=== PATIENT | female | born 1945 | race Caucasian/White ===

== ENCOUNTER 2017-12-10 08:16 | Inpatient (IN) | payer OTHER ==
[2017-12-03 13:30] LABS: BASO % 0.4 %; BASO ABS # 0.03 K/uL (0-0.2); COMPLETE YES; EOS % 1.5 %; HEMATOCRIT 44.5 % (37-47); HEMOGLOBIN 14.9 g/dL (12.0-16.0); IG# 0.01 K/uL (0.00-0.02); IG% 0.1 %; LYMPH % 25.2 %; LYMPH ABS # 1.73 K/uL (1.2-3.4); MEAN CELL VOLUME 96.1 fL (80-100); MEAN CORPUSCULAR HEMOGLOBIN 32.2 pg (25-34); MEAN CORPUSCULAR HGB CONC 33.5 g/dl (32-36); MEAN PLATELET VOLUME 9.9 fL (7.4-10.4); MONO % 8.5 %; MONO ABS # 0.58 K/uL (0.11-0.59); NEUT % 64.3 %; NEUT ABS # 4.41 K/uL (1.4-6.5); PLATELET COUNT 322 K/uL (130-400); RED BLOOD COUNT 4.63 M/uL (4.2-5.4); RED CELL DISTRIBUTION WIDTH CV 13.2 % (11.5-14.5); RED CELL DISTRIBUTION WIDTH SD 45.9 fL (36.4-46.3); WHITE BLOOD COUNT 6.86 K/uL (4.8-10.8)
[2017-12-03 13:36] LABS: URINE APPEARANCE CLEAR (CLEAR); URINE BACTERIA AUTO NEG (NEG); URINE BILIRUBIN NEG (NEG); URINE BLOOD HGB NEG (NEG); URINE COLOR DK YELLOW; URINE EPITHELIAL CELL AUTO >30 /lpf (0-5); URINE GLUCOSE(DIPSTICK) NEG (NEG); URINE KETONES NEG (NEG); URINE LEUKOCYTE ESTERASE TRACE (NEG); URINE NITRITE NEG (NEG); URINE PROTEIN(DIPSTICK) NEG (NEG); URINE RBC AUTO 0-4 /hpf (0-4); URINE SPECIFIC GRAVITY 1.017 (1.000-1.030); UROBILINOGEN NEG (NEG)
[2017-12-03 13:43] LABS: MANUAL MICROSCOPIC REQUIRED? NO; REVIEW REQ? NO
[2017-12-03 13:50] LABS: BLOOD UREA NITROGEN 13 mg/dl (7-18); BUN/CREATININE RATIO 17.6 (10-20); CALCIUM 9.8 mg/dl (8.5-10.1); CARBON DIOXIDE 25 mmol/L (21-32); CHLORIDE 105 mmol/L (98-107); CREATININE 0.71 mg/dl (0.60-1.20); EstGFR CKD-E AfrAm 98.6; EstGFR CKD-E NON AfrAm 85.1; POTASSIUM 3.8 mmol/L (3.5-5.1); SODIUM 140 mmol/L (136-145)
[2017-12-03 13:50] LABS: GLUCOSE 100 mg/dl (70-99)
[~2017-12-10 08:16] MED LIST: ATROPINE SULFATE 0.1 MG/ML 5ML SYR IV; EpHEDrine SULFATE INJ 50 MG/ML AMP IV; HYDROmorphone INJ 0.5 MG/0.5 ML SYR IV; ONDANSETRON INJ 2 MG/ML 2 ML VIAL IV; PHENYLEPHRINE 100MCG/ML 5ML SYR IV
[2017-12-10] MEDS: LACTATED RINGER'S 1000ML 1,000 ML IV ×3 (08:52→18:57)
[2017-12-10] MEDS ORDERED: MIDAZOLAM HCL 1 MG/ML 2ML VIAL (08:55)
[2017-12-10] MEDS ORDERED: FENTANYL CITRATE INJ 50 MCG/1 ML 2 ML VIAL ×2 (08:55→10:02)
[2017-12-10] MEDS ORDERED: BUPIVACAINE/EPINEPHRINE 0.5% MPF 1:200,000 30 ML VIAL (09:27)
[2017-12-10] MEDS: CEFAZOLIN 1000MG IV PUSH 5 ML IV (09:44)
[2017-12-10] MEDS ORDERED: HYDROmorphone INJ 2 MG/ML SYR/VIAL ×2 (10:03→11:14)
[2017-12-10] MEDS: BACITRACIN 50000 UNIT VIAL (10:34)
[2017-12-10] MEDS: BUPIVACAINE/EPINEPHRINE 0.5% MPF 1:200,000 10 ML VIAL INJ (10:35)
[2017-12-10] MEDS ORDERED: PHENYLEPHRINE 100MCG/ML 5ML SYR ×2 (10:42→11:30)
[2017-12-10] MEDS ORDERED: EpHEDrine SULFATE 50MG/5ML SYR ×2 (10:42→11:30)
[2017-12-10] MEDS ORDERED: DO NOT ADMINISTER PNEUMOCOCCAL VACCINE (11:15)
[2017-12-10] MEDS ORDERED: NALOXONE HCL 0.4 MG/1 ML VIAL/CARP IV (11:15)
[2017-12-10] MEDS ORDERED: ACETAMINOPHEN 500 MG TAB PO (11:15)
[2017-12-10] MEDS ORDERED: ALUMINUM/MAGNESIUM SUSP 30 ML UDC PO (11:15)
[2017-12-10] MEDS ORDERED: hydrOXYzine HCL 25 MG TAB PO (11:15)
[2017-12-10] MEDS ORDERED: LORAZEPAM 0.5 MG TAB PO (11:15)
[2017-12-10] MEDS ORDERED: LORAZEPAM INJ 0.5 MG in SYRINGE 0.75 ML IV (11:15)
[2017-12-10] MEDS ORDERED: SOD PHOSPHATE/SOD BIPHOSPHATE ENEMA 132 ML BTL PR (11:15)
[2017-12-10] MEDS ORDERED: FAMOTIDINE 20 MG TAB PO (11:15)
[2017-12-10] MEDS ORDERED: DO NOT ADMINISTER FLU VACCINE (11:15)
[2017-12-10] MEDS ORDERED: BISACODYL 10 MG SUPP PR (11:15)
[2017-12-10] MEDS ORDERED: ACETAMINOPHEN IV 100 ML IV (11:15)
[2017-12-10] MEDS ORDERED: PROMETHAZINE HCL INJ 12.5 MG in SODIUM CHLORIDE 0.9% 50ML 50 ML IV (11:15)
[2017-12-10] MEDS: FLOSEAL HEMOSTATIC MATRIX 10ML TOP (11:18)
[2017-12-10] MEDS ORDERED: DEXAMETHASONE SOD INJ 4 MG/ML VIAL (11:30)
[2017-12-10] MEDS ORDERED: GLYCOPYRROLATE INJ 0.2 MG/ML VIAL (11:30)
[2017-12-10] MEDS ORDERED: PROPOFOL IV EMULSION 10 MG/ML 20 ML VIAL IV (11:30)
[2017-12-10] MEDS ORDERED: NEOSTIGMINE METHYLSULFATE 1 MG/ML 10ML VIAL (11:30)
[2017-12-10] MEDS ORDERED: ONDANSETRON INJ 2 MG/ML 2 ML VIAL (11:30)
[2017-12-10] MEDS ORDERED: LIDOCAINE HCL 2% 2 ML VIAL (20MG/ML) (11:30)
[2017-12-10] MEDS ORDERED: ROCURONIUM BROMIDE 10 MG/ML 5 ML VIAL IV (11:30)
[2017-12-10] MEDS: HYDROmorphone HCL 0.5MG/ML 50 ML CASSETTE (11:33)
[2017-12-10] MEDS: HYDROmorphone HCL 0.5MG/ML 50 ML CASSETTE IV ×2 (12:15→22:55)
[2017-12-10] MEDS ORDERED: ESMOLOL HCL 10 MG/ML 10 ML VIAL (14:06)
[2017-12-10] MEDS: GABAPENTIN 300 MG CAP PO ×2 (14:09→20:31)
[2017-12-10] MEDS: SODIUM CHLORIDE 0.9% 1000ML 1,000 ML IV (14:09)
[2017-12-10 17:49] LABS: ACT87 HEP C IGG SCREEN** NEG (NEG)
[2017-12-10] MEDS: SIMVASTATIN 20 MG TAB PO (20:30)
[2017-12-10] MEDS: CEFAZOLIN IV 1,000 MG in SYRINGE 0 ML IV (20:30)
[2017-12-10] MEDS: DOCUSATE SODIUM/SENNA 50/8.6MG TAB PO (20:31)
[2017-12-11] MEDS: LACTATED RINGER'S 1000ML 1,000 ML IV (01:34)
[2017-12-11] MEDS: CEFAZOLIN IV 1,000 MG in SYRINGE 0 ML IV (03:51)
[2017-12-11] MEDS ORDERED: NURSING VERBAL MED ORDER (05:30)
[2017-12-11] MEDS: DC PCA (05:51)
[2017-12-11] MEDS ORDERED: NALOXONE HCL 0.4 MG/1 ML VIAL/CARP IV (06:00)
[2017-12-11 06:43] LABS: BASO % 0.2 %; BASO ABS # 0.02 K/uL (0-0.2); COMPLETE YES; EOS % 0.1 %; EOS ABS # 0.01 K/uL (0-0.5); HEMATOCRIT 33.1 % (37-47); HEMOGLOBIN 10.7 g/dL (12.0-16.0); IG# 0.03 K/uL (0.00-0.02); IG% 0.3 %; LYMPH % 15.7 %; LYMPH ABS # 1.66 K/uL (1.2-3.4); MEAN CELL VOLUME 95.4 fL (80-100); MEAN CORPUSCULAR HEMOGLOBIN 30.8 pg (25-34); MEAN CORPUSCULAR HGB CONC 32.3 g/dl (32-36); MEAN PLATELET VOLUME 9.7 fL (7.4-10.4); MONO % 8.9 %; MONO ABS # 0.94 K/uL (0.11-0.59); NEUT % 74.8 %; PLATELET COUNT 239 K/uL (130-400); RED BLOOD COUNT 3.47 M/uL (4.2-5.4); RED CELL DISTRIBUTION WIDTH CV 12.9 % (11.5-14.5); WHITE BLOOD COUNT 10.56 K/uL (4.8-10.8)
[2017-12-11 07:10] LABS: GLUCOSE 96 mg/dl (70-99)
[2017-12-11 07:10] LABS: BLOOD UREA NITROGEN 11 mg/dl (7-18); BUN/CREATININE RATIO 16.8 (10-20); CALCIUM 8.3 mg/dl (8.5-10.1); CARBON DIOXIDE 25 mmol/L (21-32); CHLORIDE 108 mmol/L (98-107); CREATININE 0.64 mg/dl (0.60-1.20); EstGFR CKD-E AfrAm 103.3; EstGFR CKD-E NON AfrAm 89.2; POTASSIUM 3.8 mmol/L (3.5-5.1); SODIUM 143 mmol/L (136-145)
[2017-12-11] MEDS: ASPIRIN 81 MG ECTAB PO (08:42)
[2017-12-11] MEDS: GABAPENTIN 300 MG CAP PO ×3 (08:42→20:52)
[2017-12-11] MEDS: OXYCODONE HCL IR 5 MG TAB (IMMEDIATE RELEASE) PO ×3 (08:45→20:51)
[2017-12-11 11:26] LABS: ACT87 HEP C IGG SCREEN** NEG (NEG)
[2017-12-11] MEDS: HYDROmorphone INJ 0.5 MG/0.5 ML SYR IV ×2 (11:36→21:27)
[2017-12-11] MEDS: SIMVASTATIN 20 MG TAB PO (20:52)
[2017-12-11] MEDS: DOCUSATE SODIUM/SENNA 50/8.6MG TAB PO (20:52)
[2017-12-12] MEDS: OXYCODONE HCL IR 5 MG TAB (IMMEDIATE RELEASE) PO ×4 (03:17→21:58)
[2017-12-12] MEDS: POLYETHYLENE (MIRALAX) 17 GM PACK PO ×4 (05:46→23:45)
[2017-12-12] MEDS: GABAPENTIN 300 MG CAP PO ×3 (09:00→20:41)
[2017-12-12] MEDS: ASPIRIN 81 MG ECTAB PO (09:00)
[2017-12-12] MEDS: SIMVASTATIN 20 MG TAB PO (20:41)
[2017-12-12] MEDS: DOCUSATE SODIUM/SENNA 50/8.6MG TAB PO (20:41)
[2017-12-13] MEDS: OXYCODONE HCL IR 5 MG TAB (IMMEDIATE RELEASE) PO ×3 (03:40→12:40)
[2017-12-13] MEDS: POLYETHYLENE (MIRALAX) 17 GM PACK PO ×2 (05:30→12:00)
[2017-12-13] MEDS: ASPIRIN 81 MG ECTAB PO (08:39)
[2017-12-13] MEDS: GABAPENTIN 300 MG CAP PO (08:39)
[2017-12-13] MEDS: MAGNESIUM HYDROXIDE SUSP 30 ML UDC PO (08:42)
[2017-12-13] MEDS: ONDANSETRON INJ 2 MG/ML 2 ML VIAL IV (09:55)
[2017-12-13] MEDS: BISACODYL 10 MG SUPP PR (10:00)
[2017-12-13] MEDS: METOCLOPRAMIDE HCL INJ 5 MG/ML 2 ML VIAL IV (12:40)
== END 2017-12-13 14:15 | disposition home health service (06) | DRG 455 ==
LOC: C.ACU 08:16 → C.3E 11:16
PROVIDERS: Orthopaedic Surgery Orthopaedic Surgery of the Spine
PROC: 0SG00AJ Fusion of Lumbar Vertebral Joint with Interbody Fusion Device, Posterior Approach, Anterior Column, Open Approach (ICD-10-PCS; principal; 2017-12-10 09:40)
PROC: 0SG0071 Fusion of Lumbar Vertebral Joint with Autologous Tissue Substitute, Posterior Approach, Posterior Column, Open Approach (ICD-10-PCS; 2017-12-10 09:40)
PROC: 0ST20ZZ Resection of Lumbar Vertebral Disc, Open Approach (ICD-10-PCS; 2017-12-10 09:40)
PROC: 01NB0ZZ Release Lumbar Nerve, Open Approach (ICD-10-PCS; 2017-12-10 09:40)
DX: M48.061 Spinal stenosis, lumbar region without neurogenic claudication (principal); M43.16 Spondylolisthesis, lumbar region; E78.5 Hyperlipidemia, unspecified; M19.90 Unspecified osteoarthritis, unspecified site; Z87.891 Personal history of nicotine dependence; Z79.82 Long term (current) use of aspirin; Z79.891 Long term (current) use of opiate analgesic; Z79.899 Other long term (current) drug therapy

== ENCOUNTER → 2018-07-04 | Outpatient (CLI) | payer OTHER ==
[~2018-07-04] MED LIST changes: +ASCO1CAP3 PO; +ASPCH81X PO; -ATROPINE SULFATE 0.1 MG/ML 5ML SYR IV; +B-COTAB18 PO; +CALC600T9 PO; -EpHEDrine SULFATE INJ 50 MG/ML AMP IV; +GABA-113 PO; +HYDR-3419 PO; -HYDROmorphone INJ 0.5 MG/0.5 ML SYR IV; +METH500T3 PO; +MULTTAB58 PO; -ONDANSETRON INJ 2 MG/ML 2 ML VIAL IV; -PHENYLEPHRINE 100MCG/ML 5ML SYR IV; +RXC5 PO; +SIMV20TA2 PO; +vitamin d PO
[2018-07-04 12:17] LABS: BASO % 0.4 %; BASO ABS # 0.02 K/uL (0-0.2); EOS % 1.6 %; EOS ABS # 0.08 K/uL (0-0.5); HEMATOCRIT 41.3 % (37-47); HEMOGLOBIN 13.7 g/dL (12.0-16.0); IG# 0.01 K/uL (0.00-0.02); LYMPH % 31.6 %; LYMPH ABS # 1.55 K/uL (1.2-3.4); MEAN CELL VOLUME 94.1 fL (80-100); MEAN CORPUSCULAR HEMOGLOBIN 31.2 pg (25-34); MEAN CORPUSCULAR HGB CONC 33.2 g/dl (32-36); MEAN PLATELET VOLUME 10.8 fL (7.4-10.4); MONO % 11.2 %; MONO ABS # 0.55 K/uL (0.11-0.59); PLATELET COUNT 269 K/uL (130-400); RED CELL DISTRIBUTION WIDTH CV 13.1 % (11.5-14.5); RED CELL DISTRIBUTION WIDTH SD 45.3 fL (36.4-46.3); WHITE BLOOD COUNT 4.91 K/uL (4.8-10.8)
--- NOTE | 2018-07-04 15:04 | DIAGNOSTIC IMAGING REPORT ---
BONE SCAN 3 PHASE LIMITED CLINICAL HISTORY: BONE SCAN 3 PHASE LT KNEE [id number] COMPARISON STUDY: Left knee 09/14/2014. TECHNIQUE: Immediately and 3 hours following the intravenous administration of 25.9 mCi of technetium 99 MDP, 3 phase bone scan of the knees was performed. FINDINGS: Left total knee arthroplasty. Faint periprosthetic radiotracer uptake within the left knee on the blood flow sequences. Slight increased asymmetric periprosthetic radiotracer uptake within the left knee as compared to the right on the blood pool sequences. There is also periprosthetic uptake within the left knee on the delayed sequences. Multifocal radiotracer uptake within the right knee on the delayed sequences is likely due to degenerative change IMPRESSION: There appears to be faint three-phase radiotracer uptake within the left knee. 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 Electronically signed by: Jarrod Fischer M.D. 07/04/2018 2:37 PM Dictated Date/Time: 07/04/2018 2:30 PM
== END | disposition home or self-care (01) ==
LOC: C.NUCL 10:05
PROVIDERS: ATTEND Orthopaedic Surgery
DX: Z96.652 Presence of left artificial knee joint (principal)

== ENCOUNTER → 2018-07-11 | Outpatient (CLI) | payer OTHER | END | disposition home or self-care (01) | LOC: C.LAB 09:49 | PROVIDERS: ATTEND Orthopaedic Surgery | DX: Z96.652 Presence of left artificial knee joint (principal) ==

== ENCOUNTER 2022-02-03 08:12 | Inpatient (IN) ==
--- NOTE | 2021-11-21 12:06 | PAT Medication Instructions ---
Medication Instructions Date of Service November 21, 2021 Home Medications ascorbic acid (vitamin C) 500 mg tablet (Vitamin C) 500 mg PO QAM aspirin 81 mg tablet,delayed release 81 mg PO QAM calcium carbonate 600 mg-vitamin D3 5 mcg (200 unit) capsule (Calcium 600 + D(3)) 1 cap PO QAM cholecalciferol (vitamin D3) 50 mcg (2,000 unit) capsule (Vitamin D3) 2,000 unit PO QAM gabapentin 300 mg capsule 300 mg PO TID loperamide 2 mg capsule (Imodium A-D) 2 mg PO QAM melatonin 3 mg tablet 6 mg PO HS multivit with min-folic acid-lutein 400 mcg-250 mcg chewable tablet (Centrum Silver) 1 tab PO QAM simvastatin 20 mg tablet 20 mg PO HS vitamin B complex (Ultra B-100 Complex) 1 tab PO QAM guar gum 1 gram chewable tablet 1 g PO QAM krill oil 500 mg capsule 500 mg PO QAM tramadol 50 mg tablet 50 mg PO TID PRN ASK your prescriber and surgeon aspirin 81 mg tablet,delayed release 81 mg PO QAM STOP taking 2 weeks before surgery guar gum 1 gram chewable tablet 1 g PO QAM krill oil 500 mg capsule 500 mg PO QAM DO NOT take the morning of surgery calcium carbonate 600 mg-vitamin D3 5 mcg (200 unit) capsule (Calcium 600 + D(3)) 1 cap PO QAM cholecalciferol (vitamin D3) 50 mcg (2,000 unit) capsule (Vitamin D3) 2,000 unit PO QAM loperamide 2 mg capsule (Imodium A-D) 2 mg PO QAM multivit with min-folic acid-lutein 400 mcg-250 mcg chewable tablet (Centrum Silver) 1 tab PO QAM vitamin B complex (Ultra B-100 Complex) 1 tab PO QAM Take morning of surgery With a small sip of water, OTHERWISE NOTHING TO EAT OR DRINK AFTER MIDNIGHT: gabapentin 300 mg capsule 300 mg PO TID tramadol 50 mg tablet 50 mg PO TID PRN(okay to take up to 4 hours prior to surgery if needed). Take evening before surgery gabapentin 300 mg capsule 300 mg PO TID melatonin 3 mg tablet 6 mg PO HS simvastatin 20 mg tablet 20 mg PO HS tramadol 50 mg tablet 50 mg PO TID PRN(if needed) Other Notes If you have any questions please call us at [phone] or [phone] or [phone] or [phone]
--- NOTE | 2021-12-01 11:19 | Anesthesiology Consultation ---
Date of Service December 01, 2021 Assessment & Plan (1) Encounter for pre-operative examination: - surgeon ordered medical clearance. - Abnormal CXR: Optimization note forwarded to PCP office for review in addition to upcoming medical clearance for continuity of care. - COVID screening: Per assessment on 12/01/2021: Travel screen negative, no known COVID-19 positive contacts or current COVID-19 related symptoms in past 2 weeks. Patient vaccinated. Surgeon arranging preop COVID testing, scheduled 12/06/2021 [place]. Awaiting results. Chart Review Chart Review: Acceptable Risk for Surgery (pending surgeon ordered medical clearance) and Patient seen in Pre Admission Testing Teaching & Discussion Pre-Anesthesia Teaching/Discussion Notes: Instructed NPO after midnight before surgery, except medications with 15 cc of water. Medication instructions provided according to the PAT guidelines. History Surgery Operation Date: 01/11/22 10:05 Proposed Procedures p L2-L4 Decompression Fusion, L4-L5 Hardware Removal, Possible L4-L5 Reinstrumentation, Spinal Cord Monitoring - Chidi Domingo, Height/Weight Height: 5 ft Weight: 62 kg Allergies Allergy/AdvReac Type Severity Reaction Status Date / Time No Known Allergies Allergy Verified 11/17/21 13:50 Medications Home Medications Medication Instructions Recorded Confirmed Last Taken ascorbic acid (vitamin C) 500 mg 500 mg PO QAM 12/30/18 11/17/21 02/11/19 tablet (Vitamin C) aspirin 81 mg tablet,delayed 81 mg PO QAM 12/30/18 11/17/21 02/11/19 release calcium carbonate 600 mg-vitamin 1 cap PO QAM 12/30/18 11/17/21 02/11/19 D3 5 mcg (200 unit) capsule (Calcium 600 + D(3)) cholecalciferol (vitamin D3) 50 2,000 unit PO QAM 12/30/18 11/17/21 02/11/19 mcg (2,000 unit) capsule (Vitamin D3) gabapentin 300 mg capsule 300 mg PO TID 12/30/18 11/17/21 02/11/19 loperamide 2 mg capsule (Imodium 2 mg PO QAM 12/30/18 11/17/21 02/11/19 A-D) melatonin 3 mg tablet 6 mg PO HS 12/30/18 11/17/21 02/11/19 multivit with min-folic 1 tab PO QAM 12/30/18 11/17/21 02/11/19 acid-lutein 400 mcg-250 mcg chewable tablet (Centrum Silver) simvastatin 20 mg tablet 20 mg PO HS 12/30/18 11/17/21 02/11/19 vitamin B complex (Ultra B-100 1 tab PO QAM 12/30/18 11/17/21 02/11/19 Complex) guar gum 1 gram chewable tablet 1 g PO QAM 11/17/21 11/17/21 Unknown krill oil 500 mg capsule 500 mg PO QAM 11/17/21 11/17/21 Unknown tramadol 50 mg tablet 50 mg PO TID PRN 11/17/21 11/17/21 Unknown Past Medical History Medical History History of colitis Hyperlipidemia Neuropathy Osteoarthritis Patient denies h/o stroke, seizures, heart attack, heart failure, DM, HTN, blood clots or blood transfusions. Exercise / Class Metabolic Activity II 4-5 Yardwork/Stairs/Walk up hill (denies CP or SOB with 1 FOS) Past Family History Family History Other No family history of adverse response to anesthesia Past Surgical History Surgical History History of back surgery L4-L5 decompression-fusion 12/10/2017: Grade 1 view, MAC#3, ETT#7.0. No issues per anesthesia postop progress note. History of cataract surgery bil, 2018 History of cholecystectomy History of colonoscopy History of hysterectomy with oophorectomy History of surgery REMOVAL OF BONE SPUR LEFT FOOT History of tooth extraction History of total knee replacement LEFT Past Anesthesia History No Hx of Anesthesia Complications and No Family Hx of Anesthesia Complications History of PONV No Hx of PONV and No Hx of Motion Sickness Social History Smoking Status: Former smoker Do You Dip or Chew Tobacco: No Smoking End Date: 47 years ago Hx Alcohol Use: Yes Alcohol type: wine alcohol intake frequency: a few times a month Hx Substance Use: No substance use type: does not use Review of Systems Patient denies chest pain, shortness of breath, dyspnea on exertion, snoring, witnessed apneas, reflux, fever, chills, cough, wheezing, or palpitations. Physical Exam Vital Signs Vitals BP 129/77 P 82 TEMP 98.1 SP02 96% on RA RESP 17 Physical Full cervical extension range of motion without pain Full TMJ range of motion TMD 3 finger breaths Mallampati Score 2 Dentition: intact, several missing teeth right side upper and lower; denies loose or chipped teeth, caps/crowns, implants or bridges Lungs: normal respiratory effort. Clear throughout to auscultation, no adventitious breath sounds Cardiac: regular rate and rhythm, no murmurs noted Carotid arteries: negative bruit bilat Extremities: no distal extremity edema Lab Results Anesthesia Preop Results Results Anesthesia Widget: WBC 7.88 K/uL (4.8-10.8) 12/01/21 Hgb 14.3 g/dL (12.0-16.0) 12/01/21 Hct 43.7 % (37-47) 12/01/21 Plt 296 K/uL (130-400) 12/01/21 Na 140 mmol/L (136-145) 12/01/21 K 3.7 mmol/L (3.5-5.1) 12/01/21 Cl 110 mmol/L (98-107) H 12/01/21 CO2 24 mmol/L (21-32) 12/01/21 BUN 9 mg/dl (7-18) 12/01/21 Creat 0.77 mg/dl (0.6-1.2) 12/01/21 Glucose Level 98 mg/dl (70-99) 12/01/21 PT 10.0 Seconds (9.0-12.0) 12/01/21 PTT 24.9 Seconds (21.0-31.0) 12/01/21 INR 1.0 (0.9-1.1) 12/01/21 Urine Color Dark Yellow 12/01/21 Urine Appearance Clear (Clear) 12/01/21 Urine pH 6.0 (4.5-7.5) 12/01/21 Urine Specific [place] 1.018 (1.000-1.030) 12/01/21 Urine Protein Negative (Negative) 12/01/21 Urine Glucose (UA) Negative (Negative) 12/01/21 Urine Ketones 1+ (Negative) H 12/01/21 Urine Blood Negative (Negative) 12/01/21 Urine Nitrite Negative (Negative) 12/01/21 Urine Bilirubin Negative (Negative) 12/01/21 Urine Urobilinogen Negative (Negative) 12/01/21 Urine Leukocyte Esterase 1+ (Negative) H 12/01/21 Urine WBC (Auto) 10-30 /hpf (0-5) H 12/01/21 Urine RBC (Auto) 0-4 /hpf (0-4) 12/01/21 Urine Hyaline Casts (Auto) 1-5 /lpf (0-5) 12/01/21 Urine Epithelial Cells (Auto) >30 /lpf (0-5) H 12/01/21 Urine Bacteria (Auto) Negative (Negative) 12/01/21 Blood Type A Positive 12/01/21 Antibody Screen NEGATIVE 12/01/21 Lab Comments: Surgeon's office made aware of abnormal pre-op testing as FYI. Testing Electrocardiogram Date: 12/01/21 Normal sinus rhythm, rate 75 bpm. Left axis deviation. No significant change found compared to ECG of 12/03/2017. Chest X-Ray Date: 12/01/21 FINDINGS: The cardiomediastinal and hilar silhouettes are within normal limits. Calcified plaque of the thoracic aorta. Mild chronic interstitial coarsening. There is a questioned 7 mm nodular density of the lateral right upper lung. No pneumothorax, pleural effusion or overt pulmonary edema. No airspace consolidation. Cholecystectomy. Lumbar levoscoliosis. IMPRESSION: 1. No acute process. 2. 7 mm nodular density of the right upper lung is suggestive of summation density. A pulmonary nodule is considered less likely.
[~2022-02-03 08:12] MED LIST changes: +ACETAMINOPHEN 500 MG TAB PO SCH; -ASCO1CAP3 PO; -ASPCH81X PO; -B-COTAB18 PO; -CALC600T9 PO; +CeleBREX 200 MG CAP PO SCH; -GABA-113 PO; +GABAPENTIN 300 MG CAP PO SCH; -HYDR-3419 PO; +LR 15ML/HR IV SCH; -METH500T3 PO; -MULTTAB58 PO; -RXC5 PO; -SIMV20TA2 PO; -vitamin d PO
[2022-02-03] MEDS ORDERED: ceFAZolin 1000MG 1,000 MG/7.5 ML SYR IV ONE (08:51)
[2022-02-03 08:52] LABS: Basophils # (auto) 0.02 K/uL (0-0.2); Basophils % (auto) 0.2 %; Eosinophils # (auto) 0.08 K/uL (0-0.5); Eosinophils % (auto) 0.8 %; Hematocrit (blood only) 43.5 % (37-47); Hemoglobin 14.7 g/dL (12.0-16.0); Immature Granulocytes # (auto) 0.02 K/uL (0.00-0.02); Immature Granulocytes % (auto) 0.2 %; Lymphocytes # (auto) 1.84 K/uL (1.2-3.4); Lymphocytes % (auto) 17.8 %; Mean Corpuscular Hemoglobin 32.3 pg (25-34); Mean Corpuscular Volume 95.6 fL (80-100); Mean Platelet Volume 9.5 fL (7.4-10.4); Monocytes # (auto) 0.68 K/uL (0.11-0.59); Monocytes % (auto) 6.6 %; Neutrophils # (auto) 7.68 K/uL (1.4-6.5); Neutrophils % (auto) 74.4 %; Platelet Count 302 K/uL (130-400); RDW Coefficient of Variation 12.9 % (11.5-14.5); RDW Standard Deviation 44.6 fL (36.4-46.3); Red Blood Count 4.55 M/uL (4.2-5.4); White Blood Count 10.32 K/uL (4.8-10.8)
[2022-02-03 08:57] LABS: Mean Corpuscular Hgb Conc 33.8 g/dL (32-36)
[2022-02-03 09:21] LABS: BUN Creatinine Ratio 15.5 (10-20); Calcium 8.5 mg/dl (8.5-10.1); Est GFR (African American) 95.9 ml/min; Est GFR (Non-African American) 82.7 ml/min; Potassium 3.6 mmol/L (3.5-5.1)
[2022-02-03] MEDS ORDERED: fentaNYL citrate 100 MCG/2 ML VIAL ONE (09:39)
[2022-02-03] MEDS ORDERED: HYDROmorphone INJ 2 MG/ML SYR/VIAL ONE (09:39)
--- NOTE | 2022-02-03 10:00 | History & Physical Bridge Note ---
Date of Service February 03, 2022 History & Physical Bridge Note I have examined the patient, reviewed the History & Physical and in the interval since the performance of the History & Physical I have noted the following changes of clinical significance: no changes noted
--- NOTE | 2022-02-03 10:01 | History & Physical Report ---
Date of Service February 03, 2022 Assessment & Plan (1) Lumbar stenosis with neurogenic claudication: Plan: L2 L4 decompression and fusion, L4-L5 hardware removal, possible L4-5 instrumentation History of Present Illness Chief Complaint: Back and bilateral leg pain Primary Care Provider: Fabricio Slater MD This is a 76-year-old female presents with worsening back and bilateral leg pain after failing course of nonoperative care is here for surgical invention. Allergies Allergy/AdvReac Type Severity Reaction Status Date / Time No Known Allergies Allergy Verified 02/03/22 08:35 Home Medications Medication Instructions Recorded Confirmed Type ascorbic acid (vitamin C) 500 mg 500 mg PO QAM 12/30/18 02/03/22 History tablet (Vitamin C) aspirin 81 mg tablet,delayed 81 mg PO QAM 12/30/18 02/03/22 History release calcium carbonate 600 mg-vitamin 1 cap PO QAM 12/30/18 02/03/22 History D3 5 mcg (200 unit) capsule (Calcium 600 + D(3)) cholecalciferol (vitamin D3) 50 2,000 unit PO QAM 12/30/18 02/03/22 History mcg (2,000 unit) capsule (Vitamin D3) gabapentin 300 mg capsule 300 mg PO TID 12/30/18 02/03/22 History loperamide 2 mg capsule (Imodium 2 mg PO QAM 12/30/18 02/03/22 History A-D) melatonin 3 mg tablet 6 mg PO HS 12/30/18 02/03/22 History multivit with min-folic 1 tab PO QAM 12/30/18 02/03/22 History acid-lutein 400 mcg-250 mcg chewable tablet (Centrum Silver) simvastatin 20 mg tablet 20 mg PO HS 12/30/18 02/03/22 History vitamin B complex (Ultra B-100 1 tab PO QAM 12/30/18 02/03/22 History Complex) krill oil 500 mg capsule 500 mg PO QAM 11/17/21 02/03/22 History tramadol 50 mg tablet 50 mg PO TID PRN 11/17/21 02/03/22 History Past Med/Surg History Medical History History of colitis Hyperlipidemia Neuropathy Osteoarthritis Surgical History History of back surgery L4-L5 decompression-fusion 12/10/2017: Grade 1 view, MAC#3, ETT#7.0. No issues per anesthesia postop progress note. History of cataract surgery bilat, 2018 History of cholecystectomy History of colonoscopy History of hysterectomy with oophorectomy History of surgery REMOVAL OF BONE SPUR LEFT FOOT History of tooth extraction History of total knee replacement LEFT Family History Other No family history of adverse response to anesthesia Social History Smoking Status: Former smoker Smoking End Date: 47 years ago; Second Hand Exposure: No; Do You Dip or Chew Tobacco: No; Tobacco Cessation Education Requested by Patient: No Hx Alcohol Use: Yes Alcohol type: wine Hx Substance Use: No Preferred Language: Kitt[place] Communication Ability: Effective Leisure Travel Agent Required: No Beliefs That Will Affect Care: None Current Living Situation: Alone Other Information That Helps Us Care for You: No Feels Safe at Home: Yes Safety Concerns: Feels Safe At This Time Assistive Devices: Glasses Physical Exam Physical Exam: Patient is alert and oriented Heart regular rhythm Lungs clear Results & Data ([facility]) Vital Signs (Past 12 Hours) Vital Signs Temp Pulse Resp BP Pulse Ox 02/03/22 08:40 36.5 C 64 18 137/84 98
[2022-02-03] MEDS ORDERED: BUPIVACAINE 0.5 % 5 MG/1 ML MPF 30ML VIAL ONE (10:09)
[2022-02-03] MEDS ORDERED: EPINEPHrine INJ 1 MG/ML AMP ONE (10:09)
[2022-02-03] MEDS ORDERED: ceFAZolin 330 MG/ML 1 GM VIAL ONE (10:10)
[2022-02-03] MEDS ORDERED: HYDROmorphone INJ 1 MG/ML SYRINGE IV PRN (11:00)
[2022-02-03] MEDS ORDERED: ePHEDrine sulfate 50 MG/ML AMP IV PRN (11:00)
[2022-02-03] MEDS ORDERED: ONDANSETRON INJ 2 MG/ML 2 ML VIAL IV PRN ×2 (11:00→14:39)
[2022-02-03] MEDS ORDERED: ATROPINE SULFATE 0.1 MG/ML 10ML SYR IV PRN (11:00)
[2022-02-03] MEDS ORDERED: FLOSEAL HEMOSTATIC MATRIX 10ML TOP ONE (11:23)
[2022-02-03] MEDS ORDERED: ONDANSETRON INJ 2 MG/ML 2 ML VIAL ONE (11:33)
[2022-02-03] MEDS ORDERED: PROPOFOL IV EMULSION 10 MG/ML 20 ML VIAL IV ONE (11:33)
[2022-02-03] MEDS ORDERED: NEOSTIGMINE METHYLSULFATE 1 MG/ML 10ML VIAL ONE (11:33)
[2022-02-03] MEDS ORDERED: GLYCOPYRROLATE 0.2 MG/ML VIAL ONE (11:33)
[2022-02-03] MEDS ORDERED: ROCURONIUM BROMIDE 10 MG/ML 5 ML VIAL IV ONE (11:33)
[2022-02-03] MEDS ORDERED: DEXAMETHASONE SOD INJ 4 MG/ML VIAL ONE (11:33)
--- NOTE | 2022-02-03 13:02 | Operative Report ---
Post Operative Report Pre & Post Diagnosis Operation Date: 01/11/22 10:05 <No data on this case meets the specified criteria> Operation Date: 02/03/22 10:05 Pre-Op Diagnosis: Lumbar Stenosis with Neurogenic Claudication Post-Op Diagnosis: Lumbar Stenosis with Neurogenic Claudication I identified the patient and participated in the time-out.: Yes Procedure Operation Date: 01/11/22 10:05 <No data on this case meets the specified criteria> Operation Date: 02/03/22 10:05 Actual Procedures #1 removal of posterior instrumentation L4-5. #2 exploration of fusion L4-5 #3 lumbar decompression bilateral medial facetectomies and foraminotomies L1-L2, L2-L3 and L3-L4. #4 posterior spinal fusion L2-L3 L3-L4. #5 placement posterior instrumentation L2-L5. #6 placement locally harvested morselized autograft in the posterior gutters per #7 placement infuse collagen sponge, master graft in the posterior lateral gutters. Surgeon Chidi Domingo, Prison Guard Supervisor None Estimated Blood Loss 100 Findings Consistent with Post-Op Diagnosis Specimens None Indications This is a 76-year-old female known to me the presents above-mentioned diagnosis after failed extensive course of nonoperative care is here for surgical invention. Description of Procedure Patient was met with identified informed consent obtained. Patient was then taken to the operative suite underwent an patient placed in a prone position the [place] table top Jose Alfredo frame. All bony prominences well-padded eyes inspected to ensure no external pressure placed upon the. This point the lumbar spine was prepped and draped in a sterile fashion. Sharp dissection with the assistance of Bovie cautery was performed down to and exposing the lamina transverse processes of L2-L3 and instrumentation at L4-5 bilaterally. I then proceeded with the hardware bilaterally explore the fusion mass noting it to be mature and intact. Informed complete laminectomy of L3 L2 and partial laminectomy of L1 including bilateral medial facetectomies and foraminotomies addressing severe spinal stenosis. Pedicle screws then placed in L2-L3 L4-5 bilaterally with assistance of fluoroscopy and proper sized leann placed. The transverse processes of L2 L3-L4 then burred to subcortically bone. Infuse collagen sponge master graft local autograft was placed in posterior gutters. 15 round SAMANTHA drain inserted. The incision was then closed with 1 Vicryl in the fascia 2-0 Vicryl subcutaneously and 4 Monocryl for final skin closure. Steri-Strip Steri-Strips placed. Patient will continue PACU stable condition. Please note spinal cord monitoring was utilized at the procedure no changes noted. I attest to the content of the Intraoperative Record and any orders documented therein. Any exceptions are noted below.
[2022-02-03] MEDS: fentaNYL citrate 100 MCG/2 ML VIAL IV PRN ×4 (13:13→13:28)
--- NOTE | 2022-02-03 13:37 | Anesthesiology Progress Note ---
Date of Service February 03, 2022 Anesthesia Post Procedure Vital Signs Vital Signs: Temp Pulse Resp BP Pulse Ox 02/03/22 13:35 57 L 16 100/54 L 99 02/03/22 13:25 56 L 16 101/56 L 99 02/03/22 13:15 65 16 108/55 L 96 02/03/22 13:07 97.5 F L 64 16 108/64 95 02/03/22 08:40 97.7 F 64 18 137/84 98 Pain Intensity Lower Back: Pain Intensity: 2 Transfer of Care Handoff Completed per policy Notes Mental Status: alert / awake / arousable and participated in evaluation Patient Amnestic to Procedure: Yes Nausea / Vomiting: adequately controlled Pain: adequately controlled Airway Patency, RR, SpO2: stable & adequate BP & HR: stable & adequate Hydration State: stable & adequate Anesthetic Complications: no major complications apparent and Pt Satisfied with anesthetic care
--- NOTE | 2022-02-03 14:28 | Fluoroscopy Report ---
[place] lumbar spine 2-3V CLINICAL HISTORY: L2-L4 decompression and fusion, L4-L5 HARDWARE REMOVAL COMPARISON STUDY: Lumbar spine 12/10/2018. FLUOROSCOPY TIME: 22 seconds. FINDINGS: 2 fluoroscopic spot images of the lumbar spine demonstrate posterior decompression fusion f rom L2 through L5 with pedicle screws and rods. The hardware appears intact. IMPRESSION: Fluoroscopic assistance provided for posterior decompression and fusion within the lumbar spine ACT 112: Negative or not required by law. Electronically signed by: Jarrod Fischer M.D. 02/03/2022 2:27 PM
[2022-02-03] MEDS ORDERED: LORazepam 2 MG/1 ML VIAL IV PRN (14:39)
[2022-02-03] MEDS ORDERED: METOCLOPRAMIDE HCL INJ 5 MG/ML 2 ML VIAL IV PRN (14:39)
[2022-02-03] MEDS ORDERED: ONDANSETRON 4 MG OD TAB PO PRN (14:39)
[2022-02-03] MEDS ORDERED: MAGNESIUM HYDROXIDE SUSP 30 ML UDC PO PRN (14:39)
[2022-02-03] MEDS ORDERED: bisacodyL 10 MG SUPP PR PRN (14:39)
[2022-02-03] MEDS ORDERED: hydrOXYzine HCl 25 MG TAB PO PRN (14:39)
[2022-02-03] MEDS ORDERED: PROMETHAZINE HCL 12.5 MG in SODIUM CHLORIDE 0.9% 50 ML IV PRN (14:39)
[2022-02-03] MEDS ORDERED: NALOXONE HCL 0.4 MG/1 ML VIAL/CARP IV PRN (14:39)
[2022-02-03] MEDS ORDERED: traMADol HCL 50 MG TABLET PO PRN (14:39)
[2022-02-03] MEDS ORDERED: FAMOTIDINE 20 MG TAB PO PRN (14:39)
[2022-02-03] MEDS ORDERED: ACETAMINOPHEN 1,000 MG/100 ML VIAL IV PRN (14:39)
[2022-02-03] MEDS ORDERED: DO NOT ADMINISTER PNEUMOCOCCAL VACCINE PRN (14:39)
[2022-02-03] MEDS ORDERED: HYDROmorphone INJ 0.5 MG/0.5 ML SYR IV PRN (14:39)
[2022-02-03] MEDS ORDERED: LORazepam 0.5 MG TAB PO PRN (14:39)
[2022-02-03] MEDS ORDERED: diphenhydrAMINE Capsule 25 MG CAP PO PRN (14:39)
[2022-02-03] MEDS ORDERED: ACETAMINOPHEN 500 MG TAB PO PRN (14:39)
[2022-02-03] MEDS ORDERED: ALUMINUM/MAGNESIUM SUSP 30 ML UDC PO PRN (14:39)
[2022-02-03] MEDS ORDERED: DO NOT ADMINISTER FLU VACCINE PRN (14:39)
[2022-02-03] MEDS ORDERED: SOD PHOSPHATE/SOD BIPHOSPHATE ENEMA 132 ML BTL PR PRN (14:39)
[2022-02-03] MEDS: HYDROmorphone INJ 1 MG/ML SYRINGE IV PRN ×2 (14:57→19:55)
[2022-02-03] MEDS: SODIUM CHLORIDE 0.9% 1000ML 1,000 ML IV SCH (14:59)
[2022-02-03] MEDS: GABAPENTIN 300 MG CAP PO SCH ×2 (15:40→21:30)
--- NOTE | 2022-02-03 15:59 | Hospitalist Consultation ---
Date of Consultation February 03, 2022 Assessment & Plan (1) Status post lumbar spine surgery for decompression of spinal cord: Has been complaining of back pain with history of back surgery in the past Status post L2-L4 decompression and fusion, L4-L5 reinstrumentation 02/03/2022 Her labs, imaging studies and EKG are unremarkable Management will be as per Ortho Minimal pain PT OT as per Ortho We will monitor CBC and PRP (2) Lumbar stenosis with neurogenic claudication: As above (3) Hyperlipidemia: Continue statin (4) Osteoarthritis: No acute arthritis in any joint DVT prophylaxis As per Ortho CODE STATUS Full Medically stable following lumbar surgery as above. History of Present Illness Reason for Consultation: Medical management following lumbar decompression and fusion Attending Physician: Chidi Domingo, DO History of Present Illness She is a 76 years old female without significant past medical history except hyperlipidemia and ongoing back pain apparently underwent L2-L4 decompression and fusion, L4-L5 reinstrumentation by Dr. Domingo today. She has been complaining of minimal pain at the surgical area without any radiation and denies any other significant symptoms. She denies any chest pain, palpitation, shortness of breath, any abdominal pain, nausea or vomiting, any headache, blurred vision, any numbness and or tingling in the extremities or any weakness involving any side. Allergies Allergy/AdvReac Type Severity Reaction Status Date / Time No Known Allergies Allergy Verified 02/03/22 08:35 Home Medications Medication Instructions Recorded Confirmed Type ascorbic acid (vitamin C) 500 mg 500 mg PO QAM 12/30/18 02/03/22 History tablet (Vitamin C) aspirin 81 mg tablet,delayed 81 mg PO QAM 12/30/18 02/03/22 History release calcium carbonate 600 mg-vitamin 1 cap PO QAM 12/30/18 02/03/22 History D3 5 mcg (200 unit) capsule (Calcium 600 + D(3)) cholecalciferol (vitamin D3) 50 2,000 unit PO QAM 12/30/18 02/03/22 History mcg (2,000 unit) capsule (Vitamin D3) gabapentin 300 mg capsule 300 mg PO TID 12/30/18 02/03/22 History loperamide 2 mg capsule (Imodium 2 mg PO QAM 12/30/18 02/03/22 History A-D) melatonin 3 mg tablet 6 mg PO HS 12/30/18 02/03/22 History multivit with min-folic 1 tab PO QAM 12/30/18 02/03/22 History acid-lutein 400 mcg-250 mcg chewable tablet (Centrum Silver) simvastatin 20 mg tablet 20 mg PO HS 12/30/18 02/03/22 History vitamin B complex (Ultra B-100 1 tab PO QAM 12/30/18 02/03/22 History Complex) krill oil 500 mg capsule 500 mg PO QAM 11/17/21 02/03/22 History tramadol 50 mg tablet 50 mg PO TID PRN 11/17/21 02/03/22 History Patient History Medical History (Updated 02/03/22 @ 15:55 by Lennie Carrasco MD) History of colitis Hyperlipidemia Neuropathy Osteoarthritis Surgical History (Updated 02/03/22 @ 15:55 by Lennie Carrasco MD) History of back surgery L4-L5 decompression-fusion 12/10/2017: Grade 1 view, MAC#3, ETT#7.0. No issues per anesthesia postop progress note. History of cataract surgery [id number] History of cholecystectomy History of colonoscopy History of hysterectomy with oophorectomy History of surgery REMOVAL OF BONE SPUR LEFT FOOT History of tooth extraction History of total knee replacement LEFT Family History Other No family history of adverse response to anesthesia Social History Smoking Status: Former smoker Smoking End Date: 47 years ago; Second Hand Exposure: No; Do You Dip or Chew Tobacco: No; Tobacco Cessation Education Requested by Patient: No Hx Alcohol Use: Yes Alcohol type: wine Hx Substance Use: No Preferred Language: Macedonian Communication Ability: Effective Pasta Maker Required: No Beliefs That Will Affect Care: None Current Living Situation: Alone Other Information That Helps Us Care for You: No Feels Safe at Home: Yes Safety Concerns: Feels Safe At This Time Assistive Devices: Glasses Review of Systems Review of Systems: All systems reviewed & are unremarkable except as noted in HPI & below Musculoskeletal: Minimal pain at the back Physical Exam Physical Exam: Lying in bed comfortably Constitutional: + ill appearing and average body habitus Eyes: PERRL, conjunctivae normal, anicteric sclerae ENMT: external ear and nose normal, oropharynx normal Neck: trachea midline, no thyromegaly Respiratory: normal respiratory effort, lungs clear to auscultation Cardiovascular: Rate/Rhythm: regular rate and regular rhythm; not tachycardic Heart Sounds: normal S1 and normal S2; no murmur Extremities: no edema Gastrointestinal (Abdomen): Inspection/Auscultation: normal bowel sounds; abdomen not distended Percussion/Palpation: abdomen soft; abdomen nontender Musculoskeletal: No acute arthritis in any joint Neurologic: Alert, awake and oriented x3. No focal sensory or motor deficit appreciated Results & Data Results & Data ([facility]) Vital Signs (Past 12 Hours) Vital Signs Temp Pulse Resp BP Pulse Ox 02/03/22 15:01 36.2 C L 63 14 102/63 100 02/03/22 14:30 36.3 C L 57 L 16 107/71 100 02/03/22 13:45 36.6 C 575 H 16 102/58 L 99 02/03/22 13:35 57 L 16 100/54 L 99 02/03/22 13:25 56 L 16 101/56 L 99 02/03/22 13:15 65 16 108/55 L 96 02/03/22 13:07 36.4 C L 64 16 108/64 95 02/03/22 08:40 36.5 C 64 18 137/84 98 Laboratory Results Short CBC 02/03/22 Range/Units 08:33 WBC 10.32 (4.8-10.8) K/uL Hgb 14.7 (12.0-16.0) g/dL Hct 43.5 (37-47) % Plt Count 302 (130-400) K/uL BMP 02/03/22 08:33 Sodium 142 Potassium 3.6 Chloride 108 H Carbon Dioxide 27 BUN 11 Creatinine 0.71 Glucose 87 Calcium 8.5 Medications Administered Current Inpatient Medications Acetaminophen (Acetaminophen 500 Mg Tab) 1,000 mg PO PREOP ZEE Stop: 02/03/22 18:00 Last Admin: 02/03/22 09:09 Dose: 1,000 mg Documented by: Acetaminophen (Acetaminophen 500 Mg Tab) 1,000 mg PO Q8H PRN PRN Reason: MILD Pain Scale 1,2,3 & Pre PT Stop: 03/05/22 14:38 Al Hydrox/Mg Hydrox/Simethicone (Aluminum/Magnesium Susp 30 Ml Udc) 30 ml PO Q6H PRN PRN Reason: Dyspepsia Stop: 03/05/22 14:38 Ascorbic Acid (Ascorbic Acid 500 Mg Tab) 500 mg PO QAM [facility] Stop: 03/06/22 08:59 Aspirin (Aspirin 81 Mg Ectab) 81 mg PO QAM [facility] Stop: 03/06/22 08:59 Bisacodyl (Bisacodyl 10 Mg Supp) 10 mg [place] DAILY PRN PRN Reason: Constipation Stop: 03/05/22 14:38 Celecoxib (Celebrex 200 Mg Cap) 200 mg PO PREOP [facility] Stop: 02/03/22 18:00 Last Admin: 02/03/22 09:09 Dose: 200 mg Documented by: Diphenhydramine HCl (Diphenhydramine Capsule 25 Mg Cap) 25 mg PO Q6H PRN PRN Reason: Allergic Rhinitis/Insomnia Stop: 03/05/22 14:38 Famotidine (Famotidine 20 Mg Tab) 20 mg PO Q12H PRN PRN Reason: Dyspepsia Stop: 03/05/22 14:38 Gabapentin (Gabapentin 300 Mg Cap) 300 mg PO PREOP [facility] Stop: 02/03/22 18:00 Last Admin: 02/03/22 09:10 Dose: Not Given Documented by: Gabapentin (Gabapentin 300 Mg Cap) 300 mg PO TID [facility] Stop: 03/05/22 14:59 Last Admin: 02/03/22 15:40 Dose: 300 mg Documented by: Hydromorphone HCl (Hydromorphone Inj 0.5 Mg/0.5 Ml Syr) 0.5 mg IV Q3H PRN PRN Reason: MODERATE Pain (Scale 4,5,6) & Pre PT Stop: 02/17/22 14:38 Hydromorphone HCl (Hydromorphone Inj 1 Mg/Ml Syringe) 1 mg IV Q3H PRN PRN Reason: SEVERE Pain (Scale 7,8,9,10) Stop: 02/17/22 14:38 Last Admin: 02/03/22 14:57 Dose: 1 mg Documented by: Hydroxyzine HCl (Hydroxyzine Hcl 25 Mg Tab) 25 mg PO Q8H PRN PRN Reason: Anxiety Stop: 03/05/22 14:38 Lactated Ringer's (Lr) 1,000 mls @ 15 mls/hr IV .Q24H ZEE Stop: 02/04/22 05:59 Last Infusion: 02/03/22 10:25 Dose: Infused Documented by: Sodium Chloride (Nss 1000ml) 1,000 mls @ 75 mls/hr IV .[id number] [facility] Stop: 03/05/22 14:38 Last Admin: 02/03/22 14:59 Dose: 75 mls/hr Documented by: Promethazine HCl 12.5 mg/ (Sodium Chloride) 50.5 mls @ 202 mls/hr IV Q6H PRN PRN Reason: Nausea &/or Vomiting Stop: 03/05/22 14:38 Acetaminophen (Ofirmev) 1,000 mg in 100 mls @ 400 mls/hr IV Q8H PRN PRN Reason: Pain Rating 1-3 & Pre PT Stop: 02/06/22 14:38 Cefazolin Sodium (Ancef 1000mg) 1,000 mg in 7.5 mls @ 2.5 mls/min IV Q8H ZEE; Protocol Stop: 02/04/22 03:17 Influenza Virus Vaccine Quadrival (Do Not Administer Flu Vaccine) 1 ea N/A PRN PRN PRN Reason: Notification Stop: 03/05/22 14:38 Lorazepam (Lorazepam 0.5 Mg Tab) 0.5 mg PO Q8H PRN PRN Reason: Sedation/Anxiety Stop: 03/05/22 14:38 Lorazepam (Lorazepam 2 Mg/1 Ml Vial) 0.5 mg IV Q8H PRN PRN Reason: Sedation/Anxiety Stop: 03/05/22 14:38 Magnesium Hydroxide (Magnesium Hydroxide Susp 30 Ml Udc) 30 ml PO Q24H PRN PRN Reason: Constipation Stop: 03/05/22 14:38 Melatonin (Melatonin 3 Mg Tab) 6 mg PO HS [facility] Stop: 03/05/22 20:59 Metoclopramide HCl (Metoclopramide Hcl Inj 5 Mg/Ml 2 Ml Vial) 10 mg IV Q6H PRN PRN Reason: Nausea &/or Vomiting Stop: 03/05/22 14:38 Multivitamins/Minerals (Calcium 600mg + Vit D 400 Iu Tab) 1 tab PO QAM ZEE Stop: 03/06/22 08:59 Multivitamins/Minerals (Cerovite Adv Formula Tab) 1 tab PO QAM [facility] Stop: 03/06/22 08:59 Naloxone HCl (Naloxone Hcl 0.4 Mg/1 Ml Vial/Carp) 0.1 mg IV Q5M PRN PRN Reason: Oversedation/Resp depression Stop: 03/05/22 14:38 Ondansetron HCl (Ondansetron Inj 2 Mg/Ml 2 Ml Vial) 4 mg IV Q6H PRN PRN Reason: Nausea &/or Vomiting Stop: 03/05/22 14:38 Ondansetron HCl (Ondansetron 4 Mg Od Tab) 4 mg PO Q6H PRN PRN Reason: Nausea Stop: 03/05/22 14:38 Oxycodone HCl (Oxycodone Hcl Ir 5 Mg Tab (Immediate Release)) 5 - 10 mg PO Q4H PRN PRN Reason: Pain & Pre PT Stop: 02/17/22 14:38 Pneumococcal Polyvalent Vaccine (Do Not Administer Pneumococcal Vaccine) 1 ea N/A PRN PRN PRN Reason: Notification Stop: 03/05/22 14:38 Polyethylene Glycol (Polyethylene (Miralax) 17 Gm Pack) 17 gm PO Q6 [facility] Stop: 03/06/22 05:59 Senna/Docusate Sodium (Docusate Sodium/Senna 50/8.6mg Tab) 2 tab PO HS [facility] Stop: 03/05/22 20:59 Simvastatin (Simvastatin 20 Mg Tab) 20 mg PO HS [facility] Stop: 03/05/22 20:59 Sodium Biphosphate/Sodium Phosphate (Sod Phosphate/Sod Biphosphate Enema 132 Ml Btl) 132 ml [place] ONE PRN PRN Reason: Constipation Stop: 03/05/22 14:38 Tramadol HCl (Tramadol Hcl 50 Mg Tablet) 50 - 100 mg PO Q4H PRN PRN Reason: Moderate-Severe pain & Pre PT Stop: 03/05/22 14:38 Vitamin B Complex (Vitamin B Complex Tab) [facility] Stop: 03/06/22 08:59 Vitamin D (Cholecalciferol 1,000 Units 25 Mcg Tab) 2,000 [facility] Stop: 03/06/22 08:59
[2022-02-03] MEDS: ceFAZolin 1000MG 1,000 MG/7.5 ML SYR IV SCH (19:55)
[2022-02-03] MEDS: MELATONIN 3 MG TAB PO SCH (21:29)
[2022-02-03] MEDS: SIMVASTATIN 20 MG TAB PO SCH (21:30)
[2022-02-03] MEDS: DOCUSATE SODIUM/SENNA 50/8.6MG TAB PO SCH (21:30)
[2022-02-04] MEDS: HYDROmorphone INJ 1 MG/ML SYRINGE IV PRN ×2 (01:04→05:59)
[2022-02-04] MEDS: ceFAZolin 1000MG 1,000 MG/7.5 ML SYR IV SCH (03:15)
[2022-02-04] MEDS: SODIUM CHLORIDE 0.9% 1000ML 1,000 ML IV SCH (03:15)
[2022-02-04] MEDS: POLYETHYLENE (MIRALAX) 17 GM PACK PO SCH ×4 (05:59→23:28)
[2022-02-04 07:36] LABS: Basophils # (auto) 0.02 K/uL (0-0.2); Basophils % (auto) 0.2 %; Eosinophils # (auto) 0.02 K/uL (0-0.5); Eosinophils % (auto) 0.2 %; Hematocrit (blood only) 34.5 % (37-47); Hemoglobin 11.4 g/dL (12.0-16.0); Immature Granulocytes # (auto) 0.02 K/uL (0.00-0.02); Immature Granulocytes % (auto) 0.2 %; Lymphocytes # (auto) 1.25 K/uL (1.2-3.4); Lymphocytes % (auto) 10.6 %; Mean Corpuscular Volume 96.9 fL (80-100); Mean Platelet Volume 9.7 fL (7.4-10.4); Monocytes % (auto) 8.5 %; Neutrophils # (auto) 9.52 K/uL (1.4-6.5); Neutrophils % (auto) 80.3 %; Platelet Count 240 K/uL (130-400); RDW Coefficient of Variation 12.9 % (11.5-14.5); RDW Standard Deviation 45.3 fL (36.4-46.3); Red Blood Count 3.56 M/uL (4.2-5.4); White Blood Count 11.83 K/uL (4.8-10.8)
[2022-02-04 07:45] LABS: BUN Creatinine Ratio 20.8 (10-20); Calcium 7.4 mg/dl (8.5-10.1); Creatinine Clr Calc Pharmacy 73.6 ml/min; Est GFR (African American) 106.9 ml/min; Est GFR (Non-African American) 92.2 ml/min; Potassium 3.6 mmol/L (3.5-5.1)
[2022-02-04] MEDS: CHOLECALCIFEROL 1,000 UNITS 25 MCG TAB PO SCH (09:35)
[2022-02-04] MEDS: VITAMIN B COMPLEX TAB PO SCH (09:35)
[2022-02-04] MEDS: GABAPENTIN 300 MG CAP PO SCH ×3 (09:35→20:13)
[2022-02-04] MEDS: CEROVITE ADV FORMULA TAB PO SCH (09:35)
[2022-02-04] MEDS: ASCORBIC ACID 500 MG TAB PO SCH (09:36)
[2022-02-04] MEDS: CALCIUM 600MG + VIT D 400 IU TAB PO SCH (09:36)
[2022-02-04] MEDS: ASPIRIN 81 MG ECTAB PO SCH (09:36)
--- NOTE | 2022-02-04 10:49 | Orthopedic Progress Note ---
Date of Service February 04, 2022 Assessment & Plan (1) Lumbar stenosis with neurogenic claudication: Plan: At this time continue physical therapy monitor SAMANTHA output over the discharge on Sunday. Admission and Anticipated Discharge Date Admission Date: February 03, 2022 Subjective Patient's back pain is controlled leg pain markedly improved Physical Exam Physical Exam: Patient is in bed. She has good strength testing. Appears comfortable. Results & Data ([facility]) Vital Signs (Past 12 Hours) Vital Signs Temp Pulse Resp BP Pulse Ox 02/04/22 07:26 36.8 C 78 18 104/67 92 02/04/22 03:19 36.6 C 85 16 110/68 93
[2022-02-04] MEDS: oxyCODONE HCL IR 5 MG TAB (IMMEDIATE RELEASE) PO PRN ×2 (11:53→20:12)
--- NOTE | 2022-02-04 18:03 | Hospitalist Progress Note ---
Date of Service February 04, 2022 Assessment & Plan (1) Status post lumbar spine surgery for decompression of spinal cord: Plan: Procedure per op note: #1 removal of posterior instrumentation L4-5. #2 exploration of fusion L4-5 #3 lumbar decompression bilateral medial facetectomies and foraminotomies L1-L2, L2-L3 and L3-L4. #4 posterior spinal fusion L2-L3 L3-L4. #5 placement posterior instrumentation L2-L5. #6 placement locally harvested morselized autograft in the posterior gutters per #7 placement infuse collagen sponge, master graft in the posterior lateral gutters. Post op pain control, DVT ppx per orthopedic service (2) Lumbar stenosis with neurogenic claudication: Plan: (3) Hyperlipidemia: Plan: Continue statin (4) Osteoarthritis: Plan: stable currently DVT prophylaxis As per Ortho CODE STATUS Full Chart, labs, vitals reviewed. Thank you for this consultation. We will follow along with you. Admission and Anticipated Discharge Date Admission Date: February 03, 2022 Subjective Feels well. Had surgery yesterday Reports pain is tolerable Physical Exam Physical Exam: Appears stated age, no acute distress, pleasant and comfortable Respiratory: breathing comfortably on room air, no wheezing/rhonchi/rales Cardiovascular: regular rate and rhythm, no murmurs/rubs/gallops Gastrointestinal (Abdomen): soft, non tender, non distended Musculoskeletal: no edema Skin: back dressing is clean/dry/intact, drain +sanguinous fluid Neurologic: awake, alert Results & Data Results & Data ([facility]) Vital Signs (Past 12 Hours) Vital Signs Temp Pulse Resp BP Pulse Ox 02/04/22 15:00 36.3 C L 64 16 101/66 95 02/04/22 11:00 36.7 C 80 18 115/74 92 02/04/22 07:26 36.8 C 78 18 104/67 92 Laboratory Results Short CBC 02/04/22 Range/Units 06:43 WBC 11.83 H (4.8-10.8) K/uL Hgb 11.4 L D (12.0-16.0) g/dL Hct 34.5 L (37-47) % Plt Count 240 (130-400) K/uL BMP 02/04/22 06:43 Sodium 137 Potassium 3.6 Chloride 108 H Carbon Dioxide 24 BUN 11 Creatinine 0.53 L Glucose 116 H Calcium 7.4 L Medications Administered Current Inpatient Medications Acetaminophen (Acetaminophen 500 Mg Tab) 1,000 mg PO Q8H PRN PRN Reason: MILD Pain Scale 1,2,3 & Pre PT Stop: 03/05/22 14:38 Al Hydrox/Mg Hydrox/Simethicone (Aluminum/Magnesium Susp 30 Ml Udc) 30 ml PO Q6H PRN PRN Reason: Dyspepsia Stop: 03/05/22 14:38 Ascorbic Acid (Ascorbic Acid 500 Mg Tab) [facility]: 03/06/22 08:59 Last Admin: 02/04/22 09:36 Dose: 500 mg Documented by: Aspirin (Aspirin 81 Mg Ectab) 81 mg PO QAM [facility] Stop: 03/06/22 08:59 Last Admin: 02/04/22 09:36 Dose: 81 mg Documented by: Bisacodyl (Bisacodyl 10 Mg Supp) 10 mg [place] DAILY PRN PRN Reason: Constipation Stop: 03/05/22 14:38 Diphenhydramine HCl (Diphenhydramine Capsule 25 Mg Cap) 25 mg PO Q6H PRN PRN Reason: Allergic Rhinitis/Insomnia Stop: 03/05/22 14:38 Famotidine (Famotidine 20 Mg Tab) 20 mg PO Q12H PRN PRN Reason: Dyspepsia Stop: 03/05/22 14:38 Gabapentin (Gabapentin 300 Mg Cap) 300 mg PO TID [facility] Stop: 03/05/22 14:59 Last Admin: 02/04/22 14:08 Dose: 300 mg Documented by: Hydromorphone HCl (Hydromorphone Inj 0.5 Mg/0.5 Ml Syr) 0.5 mg IV Q3H PRN PRN Reason: MODERATE Pain (Scale 4,5,6) & Pre PT Stop: 02/17/22 14:38 Hydromorphone HCl (Hydromorphone Inj 1 Mg/Ml Syringe) 1 mg IV Q3H PRN PRN Reason: SEVERE Pain (Scale 7,8,9,10) Stop: 02/17/22 14:38 Last Admin: 02/04/22 05:59 Dose: 1 mg Documented by: Hydroxyzine HCl (Hydroxyzine Hcl 25 Mg Tab) 25 mg PO Q8H PRN PRN Reason: Anxiety Stop: 03/05/22 14:38 Promethazine HCl 12.5 mg/ (Sodium Chloride) 50.5 mls @ 202 mls/hr IV Q6H PRN PRN Reason: Nausea &/or Vomiting Stop: 03/05/22 14:38 Acetaminophen (Ofirmev) 1,000 mg in 100 mls @ 400 mls/hr IV Q8H PRN PRN Reason: Pain Rating 1-3 & Pre PT Stop: 02/06/22 14:38 Influenza Virus Vaccine Quadrival (Do Not Administer Flu Vaccine) 1 ea N/A PRN PRN PRN Reason: Notification Stop: 03/05/22 14:38 Lorazepam (Lorazepam 0.5 Mg Tab) 0.5 mg PO Q8H PRN PRN Reason: Sedation/Anxiety Stop: 03/05/22 14:38 Lorazepam (Lorazepam 2 Mg/1 Ml Vial) 0.5 mg IV Q8H PRN PRN Reason: Sedation/Anxiety Stop: 03/05/22 14:38 Magnesium Hydroxide (Magnesium Hydroxide Susp 30 Ml Udc) 30 ml PO Q24H PRN PRN Reason: Constipation Stop: 03/05/22 14:38 Melatonin (Melatonin 3 Mg Tab) 6 mg PO HS [facility] Stop: 03/05/22 20:59 Last Admin: 02/03/22 21:29 Dose: 6 mg Documented by: Metoclopramide HCl (Metoclopramide Hcl Inj 5 Mg/Ml 2 Ml Vial) 10 mg IV Q6H PRN PRN Reason: Nausea &/or Vomiting Stop: 03/05/22 14:38 Multivitamins/Minerals (Calcium 600mg + Vit D 400 Iu Tab) 1 tab PO QAM [facility] Stop: 03/06/22 08:59 Last Admin: 02/04/22 09:36 Dose: 1 tab Documented by: Multivitamins/Minerals (Cerovite Adv Formula Tab) 1 tab PO QAM [facility] Stop: 03/06/22 08:59 Last Admin: 02/04/22 09:35 Dose: 1 tab Documented by: Naloxone HCl (Naloxone Hcl 0.4 Mg/1 Ml Vial/Carp) 0.1 mg IV Q5M PRN PRN Reason: Oversedation/Resp depression Stop: 03/05/22 14:38 Ondansetron HCl (Ondansetron Inj 2 Mg/Ml 2 Ml Vial) 4 mg IV Q6H PRN PRN Reason: Nausea &/or Vomiting Stop: 03/05/22 14:38 Last Admin: 02/03/22 18:19 Dose: 4 mg Documented by: Ondansetron HCl (Ondansetron 4 Mg Od Tab) 4 mg PO Q6H PRN PRN Reason: Nausea Stop: 03/05/22 14:38 Oxycodone HCl (Oxycodone Hcl Ir 5 Mg Tab (Immediate Release)) 5 - 10 mg PO Q4H PRN PRN Reason: Pain & Pre PT Stop: 02/17/22 14:38 Last Admin: 02/04/22 11:53 Dose: 5 mg Documented by: Pneumococcal Polyvalent Vaccine (Do Not Administer Pneumococcal Vaccine) 1 ea N/A PRN PRN PRN Reason: Notification Stop: 03/05/22 14:38 Polyethylene Glycol (Polyethylene (Miralax) 17 Gm Pack) 17 gm PO Q6 [facility] Stop: 03/06/22 05:59 Last Admin: 02/04/22 11:54 Dose: 17 gm Documented by: Senna/Docusate Sodium (Docusate Sodium/Senna 50/8.6mg Tab) 2 tab PO [facility] Stop: 03/05/22 20:59 Last Admin: 02/03/22 21:30 Dose: 2 tab Documented by: Simvastatin (Simvastatin 20 Mg Tab) 20 mg PO [facility] Stop: 03/05/22 20:59 Last Admin: 02/03/22 21:30 Dose: 20 mg Documented by: Sodium Biphosphate/Sodium Phosphate (Sod Phosphate/Sod Biphosphate Enema 132 Ml Btl) 132 ml [place] ONE PRN PRN Reason: Constipation Stop: 03/05/22 14:38 Tramadol HCl (Tramadol Hcl 50 Mg Tablet) 50 - 100 mg PO Q4H PRN PRN Reason: Moderate-Severe pain & Pre PT Stop: 03/05/22 14:38 Last Admin: 02/04/22 14:07 Dose: 100 mg Documented by: Vitamin B Complex (Vitamin B Complex Tab) [facility] Stop: 03/06/22 08:59 Last Admin: 02/04/22 09:35 Dose: 1 tab Documented by: Vitamin D (Cholecalciferol 1,000 Units 25 Mcg Tab) 2,000 units [facility] Stop: 03/06/22 08:59 Last Admin: 02/04/22 09:35 Dose: 2,000 units Documented by:
[2022-02-04] MEDS: SIMVASTATIN 20 MG TAB PO SCH (20:12)
[2022-02-04] MEDS: MELATONIN 3 MG TAB PO SCH (20:12)
[2022-02-04] MEDS: DOCUSATE SODIUM/SENNA 50/8.6MG TAB PO SCH (20:12)
[2022-02-05] MEDS: oxyCODONE HCL IR 5 MG TAB (IMMEDIATE RELEASE) PO PRN ×3 (04:40→21:40)
[2022-02-05] MEDS: POLYETHYLENE (MIRALAX) 17 GM PACK PO SCH (05:51)
[2022-02-05] MEDS: GABAPENTIN 300 MG CAP PO SCH ×3 (07:59→21:39)
[2022-02-05] MEDS: CALCIUM 600MG + VIT D 400 IU TAB PO SCH (08:00)
[2022-02-05] MEDS: VITAMIN B COMPLEX TAB PO SCH (08:00)
[2022-02-05] MEDS: ASCORBIC ACID 500 MG TAB PO SCH (08:00)
[2022-02-05] MEDS: CEROVITE ADV FORMULA TAB PO SCH (08:00)
[2022-02-05] MEDS: ASPIRIN 81 MG ECTAB PO SCH (08:00)
[2022-02-05] MEDS: CHOLECALCIFEROL 1,000 UNITS 25 MCG TAB PO SCH (08:00)
[2022-02-05] MEDS: HYDROmorphone INJ 1 MG/ML SYRINGE IV PRN (09:25)
--- NOTE | 2022-02-05 10:53 | Orthopedic Progress Note ---
Date of Service February 05, 2022 Assessment & Plan (1) Lumbar stenosis with neurogenic claudication: Plan: This time continue physical therapy monitor SAMANTHA output anticipate discharge tomorrow with home health. Admission and Anticipated Discharge Date Admission Date: February 03, 2022 Subjective Patient states her back pain is controlled leg pain markedly improved Physical Exam Physical Exam: On exam she is distracted testing appears comfortable. Results & Data ([place]) Vital Signs (Past 12 Hours) Vital Signs Temp Pulse Resp BP Pulse Ox 02/05/22 07:16 36.7 C 88 18 111/74 94 02/04/22 22:18 37 C 90 16 107/70 91
--- NOTE | 2022-02-05 12:55 | Hospitalist Progress Note ---
Date of Service February 05, 2022 Assessment & Plan (1) Status post lumbar spine surgery for decompression of spinal cord: Plan: per op note: #1 removal of posterior instrumentation L4-5. #2 exploration of fusion L4-5 #3 lumbar decompression bilateral medial facetectomies and foraminotomies L1-L2, L2-L3 and L3-L4. #4 posterior spinal fusion L2-L3 L3-L4. #5 placement posterior instrumentation L2-L5. #6 placement locally harvested morselized autograft in the posterior gutters per #7 placement infuse collagen sponge, master graft in the posterior lateral gutters. Post op pain control, DVT ppx per orthopedic service (2) Lumbar stenosis with neurogenic claudication: Plan: (3) Hyperlipidemia: Plan: Continue statin (4) Osteoarthritis: Plan: stable currently DVT prophylaxis As per Ortho CODE STATUS Full Patient is medically stable for discharge from a medicine perspective. Final disposition per primary service. We will follow along while she remains in the hospital. Admission and Anticipated Discharge Date Admission Date: February 03, 2022 Subjective Feels well. No events overnight Physical Exam Physical Exam: sitting in bed, no acute distress, non toxic Respiratory: breathing comfortably on room air, no wheezing/rhonchi/rales Cardiovascular: regular rate and rhtyhm, no murmurs/rubs/gallops Gastrointestinal (Abdomen): soft, non tender Musculoskeletal: no edema Results & Data Results & Data ([facility]) Vital Signs (Past 12 Hours) Vital Signs Temp Pulse Resp BP Pulse Ox 02/05/22 07:16 36.7 C 88 18 111/74 94 Medications Administered Current Inpatient Medications Acetaminophen (Acetaminophen 500 Mg Tab) 1,000 mg PO Q8H PRN PRN Reason: MILD Pain Scale 1,2,3 & Pre PT Stop: 03/05/22 14:38 Last Admin: 02/05/22 08:01 Dose: 1,000 mg Documented by: Al Hydrox/Mg Hydrox/Simethicone (Aluminum/Magnesium Susp 30 Ml Udc) 30 ml PO Q6H PRN PRN Reason: Dyspepsia Stop: 03/05/22 14:38 Ascorbic Acid (Ascorbic Acid 500 Mg Tab) [facility] Stop: 03/06/22 08:59 Last Admin: 02/05/22 08:00 Dose: 500 mg Documented by: Aspirin (Aspirin 81 Mg Ectab) 81 mg PO QAM [facility] Stop: 03/06/22 08:59 Last Admin: 02/05/22 08:00 Dose: 81 mg Documented by: Bisacodyl (Bisacodyl 10 Mg Supp) 10 mg IN DAILY PRN PRN Reason: Constipation Stop: 03/05/22 14:38 Diphenhydramine HCl (Diphenhydramine Capsule 25 Mg Cap) 25 mg PO Q6H PRN PRN Reason: Allergic Rhinitis/Insomnia Stop: 03/05/22 14:38 Famotidine (Famotidine 20 Mg Tab) 20 mg PO Q12H PRN PRN Reason: Dyspepsia Stop: 03/05/22 14:38 Gabapentin (Gabapentin 300 Mg Cap) 300 mg PO TID [facility] Stop: 03/05/22 14:59 Last Admin: 02/05/22 07:59 Dose: 300 mg Documented by: Hydromorphone HCl (Hydromorphone Inj 0.5 Mg/0.5 Ml Syr) 0.5 mg IV Q3H PRN PRN Reason: MODERATE Pain (Scale 4,5,6) & Pre PT Stop: 02/17/22 14:38 Hydromorphone HCl (Hydromorphone Inj 1 Mg/Ml Syringe) 1 mg IV Q3H PRN PRN Reason: SEVERE Pain (Scale 7,8,9,10) Stop: 02/17/22 14:38 Last Admin: 02/05/22 09:25 Dose: 1 mg Documented by: Hydroxyzine HCl (Hydroxyzine Hcl 25 Mg Tab) 25 mg PO Q8H PRN PRN Reason: Anxiety Stop: 03/05/22 14:38 Promethazine HCl 12.5 mg/ (Sodium Chloride) 50.5 mls @ 202 mls/hr IV Q6H PRN PRN Reason: Nausea &/or Vomiting Stop: 03/05/22 14:38 Acetaminophen (Ofirmev) 1,000 mg in 100 mls @ 400 mls/hr IV Q8H PRN PRN Reason: Pain Rating 1-3 & Pre PT Stop: 02/06/22 14:38 Influenza Virus Vaccine Quadrival (Do Not Administer Flu Vaccine) 1 ea N/A PRN PRN PRN Reason: Notification Stop: 03/05/22 14:38 Lorazepam (Lorazepam 0.5 Mg Tab) 0.5 mg PO Q8H PRN PRN Reason: Sedation/Anxiety Stop: 03/05/22 14:38 Lorazepam (Lorazepam 2 Mg/1 Ml Vial) 0.5 mg IV Q8H PRN PRN Reason: Sedation/Anxiety Stop: 03/05/22 14:38 Magnesium Hydroxide (Magnesium Hydroxide Susp 30 Ml Udc) 30 ml PO Q24H PRN PRN Reason: Constipation Stop: 03/05/22 14:38 Melatonin (Melatonin 3 Mg Tab) 6 mg PO HS [facility] Stop: 03/05/22 20:59 Last Admin: 02/04/22 20:12 Dose: 6 mg Documented by: Metoclopramide HCl (Metoclopramide Hcl Inj 5 Mg/Ml 2 Ml Vial) 10 mg IV Q6H PRN PRN Reason: Nausea &/or Vomiting Stop: 03/05/22 14:38 Multivitamins/Minerals (Calcium 600mg + Vit D 400 Iu Tab) 1 tab PO QAM [facility] Stop: 03/06/22 08:59 Last Admin: 02/05/22 08:00 Dose: 1 tab Documented by: Multivitamins/Minerals (Cerovite Adv Formula Tab) 1 tab PO QAM [facility] Stop: 03/06/22 08:59 Last Admin: 02/05/22 08:00 Dose: 1 tab Documented by: Naloxone HCl (Naloxone Hcl 0.4 Mg/1 Ml Vial/Carp) 0.1 mg IV Q5M PRN PRN Reason: Oversedation/Resp depression Stop: 03/05/22 14:38 Ondansetron HCl (Ondansetron Inj 2 Mg/Ml 2 Ml Vial) 4 mg IV Q6H PRN PRN Reason: Nausea &/or Vomiting Stop: 03/05/22 14:38 Last Admin: 02/03/22 18:19 Dose: 4 mg Documented by: Ondansetron HCl (Ondansetron 4 Mg Od Tab) 4 mg PO Q6H PRN PRN Reason: Nausea Stop: 03/05/22 14:38 Oxycodone HCl (Oxycodone Hcl Ir 5 Mg Tab (Immediate Release)) 5 - 10 mg PO Q4H PRN PRN Reason: Pain & Pre PT Stop: 02/17/22 14:38 Last Admin: 02/05/22 04:40 Dose: 10 mg Documented by: Pneumococcal Polyvalent Vaccine (Do Not Administer Pneumococcal Vaccine) 1 ea N/A PRN PRN PRN Reason: Notification Stop: 03/05/22 14:38 Senna/Docusate Sodium (Docusate Sodium/Senna 50/8.6mg Tab) 2 tab PO [facility] Stop: 03/05/22 20:59 Last Admin: 02/04/22 20:12 Dose: 2 tab Documented by: Simvastatin (Simvastatin 20 Mg Tab) 20 mg PO [facility] Stop: 03/05/22 20:59 Last Admin: 02/04/22 20:12 Dose: 20 mg Documented by: Sodium Biphosphate/Sodium Phosphate (Sod Phosphate/Sod Biphosphate Enema 132 Ml Btl) 132 ml IN ONE PRN PRN Reason: Constipation Stop: 03/05/22 14:38 Tramadol HCl (Tramadol Hcl 50 Mg Tablet) 50 - 100 mg PO Q4H PRN PRN Reason: Moderate-Severe pain & Pre PT Stop: 03/05/22 14:38 Last Admin: 02/04/22 14:07 Dose: 100 mg Documented by: Vitamin B Complex (Vitamin B Complex Tab) 1 tab PO [facility] Stop: 03/06/22 08:59 Last Admin: 02/05/22 08:00 Dose: 1 tab Documented by: Vitamin D (Cholecalciferol 1,000 Units 25 Mcg Tab) 2,000 units PO [facility] Stop: 03/06/22 08:59 Last Admin: 02/05/22 08:00 Dose: 2,000 units Documented by:
[2022-02-05] MEDS: DOCUSATE SODIUM/SENNA 50/8.6MG TAB PO SCH (21:39)
[2022-02-05] MEDS: SIMVASTATIN 20 MG TAB PO SCH (21:40)
[2022-02-05] MEDS: MELATONIN 3 MG TAB PO SCH (21:44)
[2022-02-06] MEDS: oxyCODONE HCL IR 5 MG TAB (IMMEDIATE RELEASE) PO PRN ×5 (02:10→21:26)
[2022-02-06] MEDS: CHOLECALCIFEROL 1,000 UNITS 25 MCG TAB PO SCH (08:31)
[2022-02-06] MEDS: CEROVITE ADV FORMULA TAB PO SCH (08:31)
[2022-02-06] MEDS: CALCIUM 600MG + VIT D 400 IU TAB PO SCH (08:32)
[2022-02-06] MEDS: VITAMIN B COMPLEX TAB PO SCH (08:32)
[2022-02-06] MEDS: GABAPENTIN 300 MG CAP PO SCH ×3 (08:32→20:42)
[2022-02-06] MEDS: ASPIRIN 81 MG ECTAB PO SCH (08:32)
[2022-02-06] MEDS: ASCORBIC ACID 500 MG TAB PO SCH (08:32)
--- NOTE | 2022-02-06 10:04 | Hospitalist Progress Note ---
Date of Service February 06, 2022 Assessment & Plan (1) Status post lumbar spine surgery for decompression of spinal cord: (2) Lumbar stenosis with neurogenic claudication: Plan: per op note: #1 removal of posterior instrumentation L4-5. #2 exploration of fusion L4-5 #3 lumbar decompression bilateral medial facetectomies and foraminotomies L1-L2, L2-L3 and L3-L4. #4 posterior spinal fusion L2-L3 L3-L4. #5 placement posterior instrumentation L2-L5. #6 placement locally harvested morselized autograft in the posterior gutters per #7 placement infuse collagen sponge, master graft in the posterior lateral gutters. POD#3 pain/wound management per ortho activity and therapy as tolerated by ortho dvt ppx per ortho plan for d/c today (3) Hyperlipidemia: Plan: Continue statin (4) Osteoarthritis: Plan: stable currently DVT prophylaxis As per Ortho CODE STATUS Full Patient is medically stable for discharge from a medicine perspective. Final disposition per primary service. Thank you for this consultation. We will follow the patient with you during their hospital stay. You can reach a member of the [facility] Hospitalist Team 18/06 via hospitalist role on tiger text. Pt was seen and examined in collaboration with Dr. Renee Admission and Anticipated Discharge Date Admission Date: February 03, 2022 Supervising Physician Co-Signing Physician Notes Patient was seen and evaluated independently. Chart was reviewed. Case was discussed with SEAN. Patient feels light headed and dizzy today. Hb this morning 11.4, repeat 12.6. Would recommend continue to monitor.. Remaining Assessment and Plan as above Subjective Patient was seen and examined in room 353-1. Follow up Lumbar Surgery. She is doing well this morning. Offers no complaints. Denies cp/sob, n/v/d, ab pain. She is passing flatus and moving bowels. Hoping to be discharged today. Review of Systems Review of Systems: All systems reviewed & are unremarkable except as noted in HPI & below Physical Exam Physical Exam: Gen: WD/WN,F, lying in bed, NAD, A&O x3 HEENT: Normocephalic, atraumatic, conjunctivae moist, sclerae anicteric, mucous membranes moist. Lung: Clear to Auscultation bilaterally, no wheezes/rales/rhonchi Heart: Regular rate, regular rhythm, no murmurs, rubs, or gallops Abdomen: Soft, NT, ND +BS x 4 Extremities: No edema, lumbar dressing cdi, adriana drain w/ scant drainage Skin: Warm, no rash, negative turgor. Results & Data Results & Data ([facility]) Vital Signs (Past 12 Hours) Vital Signs Temp Pulse Resp BP Pulse Ox 02/06/22 07:40 36.6 C 79 18 129/83 95 02/05/22 22:37 36.5 C 68 14 120/82 92 Medications Administered Current Inpatient Medications Acetaminophen (Acetaminophen 500 Mg Tab) 1,000 mg PO Q8H PRN PRN Reason: MILD Pain Scale 1,2,3 & Pre PT Stop: 03/05/22 14:38 Last Admin: 02/05/22 08:01 Dose: 1,000 mg Documented by: Al Hydrox/Mg Hydrox/Simethicone (Aluminum/Magnesium Susp 30 Ml Udc) 30 ml PO Q6H PRN PRN Reason: Dyspepsia Stop: 03/05/22 14:38 Ascorbic Acid (Ascorbic Acid 500 Mg Tab) 500 mg PO QAM [facility] Stop: 03/06/22 08:59 Last Admin: 02/06/22 08:32 Dose: 500 mg Documented by: Aspirin (Aspirin 81 Mg Ectab) 81 mg PO QAM [facility] Stop: 03/06/22 08:59 Last Admin: 02/06/22 08:32 Dose: 81 mg Documented by: Bisacodyl (Bisacodyl 10 Mg Supp) 10 mg [place] DAILY PRN PRN Reason: Constipation Stop: 03/05/22 14:38 Diphenhydramine HCl (Diphenhydramine Capsule 25 Mg Cap) 25 mg PO Q6H PRN PRN Reason: Allergic Rhinitis/Insomnia Stop: 03/05/22 14:38 Famotidine (Famotidine 20 Mg Tab) 20 mg PO Q12H PRN PRN Reason: Dyspepsia Stop: 03/05/22 14:38 Gabapentin (Gabapentin 300 Mg Cap) 300 mg PO TID [facility] Stop: 03/05/22 14:59 Last Admin: 02/06/22 08:32 Dose: 300 mg Documented by: Hydromorphone HCl (Hydromorphone Inj 0.5 Mg/0.5 Ml Syr) 0.5 mg IV Q3H PRN PRN Reason: MODERATE Pain (Scale 4,5,6) & Pre PT Stop: 02/17/22 14:38 Hydromorphone HCl (Hydromorphone Inj 1 Mg/Ml Syringe) 1 mg IV Q3H PRN PRN Reason: SEVERE Pain (Scale 7,8,9,10) Stop: 02/17/22 14:38 Last Admin: 02/05/22 09:25 Dose: 1 mg Documented by: Hydroxyzine HCl (Hydroxyzine Hcl 25 Mg Tab) 25 mg PO Q8H PRN PRN Reason: Anxiety Stop: 03/05/22 14:38 Promethazine HCl 12.5 mg/ (Sodium Chloride) 50.5 mls @ 202 mls/hr IV Q6H PRN PRN Reason: Nausea &/or Vomiting Stop: 03/05/22 14:38 Acetaminophen (Ofirmev) 1,000 mg in 100 mls @ 400 mls/hr IV Q8H PRN PRN Reason: Pain Rating 1-3 & Pre PT Stop: 02/06/22 14:38 Influenza Virus Vaccine Quadrival (Do Not Administer Flu Vaccine) 1 ea N/A PRN PRN PRN Reason: Notification Stop: 03/05/22 14:38 Lorazepam (Lorazepam 0.5 Mg Tab) 0.5 mg PO Q8H PRN PRN Reason: Sedation/Anxiety Stop: 03/05/22 14:38 Lorazepam (Lorazepam 2 Mg/1 Ml Vial) 0.5 mg IV Q8H PRN PRN Reason: Sedation/Anxiety Stop: 03/05/22 14:38 Magnesium Hydroxide (Magnesium Hydroxide Susp 30 Ml Udc) 30 ml PO Q24H PRN PRN Reason: Constipation Stop: 03/05/22 14:38 Melatonin (Melatonin 3 Mg Tab) 6 mg PO HS [facility] Stop: 03/05/22 20:59 Last Admin: 02/05/22 21:44 Dose: 6 mg Documented by: Metoclopramide HCl (Metoclopramide Hcl Inj 5 Mg/Ml 2 Ml Vial) 10 mg IV Q6H PRN PRN Reason: Nausea &/or Vomiting Stop: 03/05/22 14:38 Multivitamins/Minerals (Calcium 600mg + Vit D 400 Iu Tab) 1 tab PO QAM [facility] Stop: 03/06/22 08:59 Last Admin: 02/06/22 08:32 Dose: 1 tab Documented by: Multivitamins/Minerals (Cerovite Adv Formula Tab) 1 tab PO QAM [facility] Stop: 03/06/22 08:59 Last Admin: 02/06/22 08:31 Dose: 1 tab Documented by: Naloxone HCl (Naloxone Hcl 0.4 Mg/1 Ml Vial/Carp) 0.1 mg IV Q5M PRN PRN Reason: Oversedation/Resp depression Stop: 03/05/22 14:38 Ondansetron HCl (Ondansetron Inj 2 Mg/Ml 2 Ml Vial) 4 mg IV Q6H PRN PRN Reason: Nausea &/or Vomiting Stop: 03/05/22 14:38 Last Admin: 02/03/22 18:19 Dose: 4 mg Documented by: Ondansetron HCl (Ondansetron 4 Mg Od Tab) 4 mg PO Q6H PRN PRN Reason: Nausea Stop: 03/05/22 14:38 Oxycodone HCl (Oxycodone Hcl Ir 5 Mg Tab (Immediate Release)) 5 - 10 mg PO Q4H PRN PRN Reason: Pain & Pre PT Stop: 02/17/22 14:38 Last Admin: 02/06/22 07:32 Dose: 10 mg Documented by: Pneumococcal Polyvalent Vaccine (Do Not Administer Pneumococcal Vaccine) 1 ea N/A PRN PRN PRN Reason: Notification Stop: 03/05/22 14:38 Senna/Docusate Sodium (Docusate Sodium/Senna 50/8.6mg Tab) 2 tab PO [facility] Stop: 03/05/22 20:59 Last Admin: 02/05/22 21:39 Dose: Not Given Documented by: Simvastatin (Simvastatin 20 Mg Tab) 20 mg PO [facility] Stop: 03/05/22 20:59 Last Admin: 02/05/22 21:40 Dose: 20 mg Documented by: Sodium Biphosphate/Sodium Phosphate (Sod Phosphate/Sod Biphosphate Enema 132 Ml Btl) 132 ml [place] ONE PRN PRN Reason: Constipation Stop: 03/05/22 14:38 Tramadol HCl (Tramadol Hcl 50 Mg Tablet) 50 - 100 mg PO Q4H PRN PRN Reason: Moderate-Severe pain & Pre PT Stop: 03/05/22 14:38 Last Admin: 02/04/22 14:07 Dose: 100 mg Documented by: Vitamin B Complex (Vitamin B Complex Tab) 1 tab PO [facility] Stop: 03/06/22 08:59 Last Admin: 02/06/22 08:32 Dose: 1 tab Documented by: Vitamin D (Cholecalciferol 1,000 Units 25 Mcg Tab) 2,000 units PO [facility] Stop: 03/06/22 08:59 Last Admin: 02/06/22 08:31 Dose: 2,000 units Documented by:
[2022-02-06 10:37] LABS: Hematocrit (blood only) 37.1 % (37-47); Hemoglobin 12.6 g/dL (12.0-16.0); Mean Corpuscular Hemoglobin 32.3 pg (25-34); Mean Corpuscular Volume 95.1 fL (80-100); Mean Platelet Volume 9.5 fL (7.4-10.4); Platelet Count 250 K/uL (130-400); RDW Coefficient of Variation 12.9 % (11.5-14.5); RDW Standard Deviation 44.6 fL (36.4-46.3); White Blood Count 9.24 K/uL (4.8-10.8)
[2022-02-06 11:00] LABS: BUN Creatinine Ratio 15.4 (10-20); Calcium 8.9 mg/dl (8.5-10.1); Creatinine Clr Calc Pharmacy 75.1 ml/min; Est GFR (African American) 107.6 ml/min; Est GFR (Non-African American) 92.8 ml/min; Potassium 3.5 mmol/L (3.5-5.1)
--- NOTE | 2022-02-06 13:32 | Orthopedic Progress Note ---
Date of Service February 06, 2022 Assessment & Plan (1) Lumbar stenosis with neurogenic claudication: Plan: At this time we will continue physical therapy today we will discontinue her drain and plan for discharge home tomorrow. Admission and Anticipated Discharge Date Admission Date: February 03, 2022 Subjective Patient noting significant overall generalized fatigue today. She denies any leg weakness or pain. Back pain is well controlled. Physical Exam Physical Exam: Exam she is ambulating the halls with a walker. She is with her physical therapist. She has reasonable strength testing. Appears comfortable. Results & Data ([facility]) Vital Signs (Past 12 Hours) Vital Signs Temp Pulse Resp BP Pulse Ox 02/06/22 07:40 36.6 C 79 18 129/83 95
[2022-02-06] MEDS: SIMVASTATIN 20 MG TAB PO SCH (20:41)
[2022-02-06] MEDS: MELATONIN 3 MG TAB PO SCH (20:41)
[2022-02-06] MEDS: DOCUSATE SODIUM/SENNA 50/8.6MG TAB PO SCH (20:42)
[2022-02-07] MEDS: oxyCODONE HCL IR 5 MG TAB (IMMEDIATE RELEASE) PO PRN ×3 (03:45→13:00)
[2022-02-07] MEDS: ASPIRIN 81 MG ECTAB PO SCH (08:36)
[2022-02-07] MEDS: VITAMIN B COMPLEX TAB PO SCH (08:37)
[2022-02-07] MEDS: ASCORBIC ACID 500 MG TAB PO SCH (08:37)
[2022-02-07] MEDS: CALCIUM 600MG + VIT D 400 IU TAB PO SCH (08:37)
[2022-02-07] MEDS: CEROVITE ADV FORMULA TAB PO SCH (08:37)
[2022-02-07] MEDS: GABAPENTIN 300 MG CAP PO SCH (08:37)
[2022-02-07] MEDS: CHOLECALCIFEROL 1,000 UNITS 25 MCG TAB PO SCH (08:37)
--- NOTE | 2022-02-07 11:19 | Hospitalist Progress Note ---
Date of Service February 07, 2022 Assessment & Plan (1) Status post lumbar spine surgery for decompression of spinal cord: (2) Lumbar stenosis with neurogenic claudication: Plan: per op note: #1 removal of posterior instrumentation L4-5. #2 exploration of fusion L4-5 #3 lumbar decompression bilateral medial facetectomies and foraminotomies L1-L2, L2-L3 and L3-L4. #4 posterior spinal fusion L2-L3 L3-L4. #5 placement posterior instrumentation L2-L5. #6 placement locally harvested morselized autograft in the posterior gutters per #7 placement infuse collagen sponge, master graft in the posterior lateral gutters. POD#4 pain/wound management per ortho activity and therapy as tolerated by ortho dvt ppx per ortho plan for d/c today (3) Hyperlipidemia: Plan: Continue statin (4) Osteoarthritis: Plan: stable currently DVT prophylaxis As per Ortho CODE STATUS Full Patient is medically stable for discharge from a medicine perspective. Final disposition per primary service. Thank you for this consultation. We will follow the patient with you during their hospital stay. You can reach a member of the [facility] Hospitalist Team 18/06 via hospitalist role on tiger text. Pt was seen and examined in collaboration with Dr. Renee Admission and Anticipated Discharge Date Admission Date: February 03, 2022 Supervising Physician Co-Signing Physician Notes Patient was seen and evaluated independently. Chart was reviewed. Case discussed with SEAN. Agree with assessment and plan as above Subjective Patient was seen and examined in room 353-1. Follow up Lumbar Surgery. Patient feels much better this morning. She denies any residual lightheadedness or dizziness. She feels ready to be discharged home. She denies fever, chills, sweats, lightheadedness, dizziness, chest pain, shortness of breath, nausea, vomiting, abdominal pain. Review of Systems Review of Systems: All systems reviewed & are unremarkable except as noted in HPI & below Physical Exam Physical Exam: Gen: WD/WN,F, lying in bed, NAD, A&O x3 HEENT: Normocephalic, atraumatic, conjunctivae moist, sclerae anicteric, mucous membranes moist. Lung: Clear to Auscultation bilaterally, no wheezes/rales/rhonchi Heart: Regular rate, regular rhythm, no murmurs, rubs, or gallops Abdomen: Soft, NT, ND +BS x 4 Extremities: No edema, lumbar dressing cdi, adriana drain w/ scant drainage Skin: Warm, no rash, negative turgor. Results & Data Results & Data ([facility]) Vital Signs (Past 12 Hours) Vital Signs Temp Pulse Resp BP Pulse Ox 02/07/22 11:00 36.7 C 78 18 102/70 92 02/07/22 07:00 36.8 C 74 17 112/70 93 02/06/22 23:25 36.8 C 80 18 105/71 93 Medications Administered Current Inpatient Medications Acetaminophen (Acetaminophen 500 Mg Tab) 1,000 mg PO Q8H PRN PRN Reason: MILD Pain Scale 1,2,3 & Pre PT Stop: 03/05/22 14:38 Last Admin: 02/05/22 08:01 Dose: 1,000 mg Documented by: Al Hydrox/Mg Hydrox/Simethicone (Aluminum/Magnesium Susp 30 Ml Udc) 30 ml PO Q 6H PRN PRN Reason: Dyspepsia Stop: 03/05/22 14:38 Ascorbic Acid (Ascorbic Acid 500 Mg Tab) 500 mg PO QAM [facility] Stop: 03/06/22 08:59 Last Admin: 02/07/22 08:37 Dose: 500 mg Documented by: Aspirin (Aspirin 81 Mg Ectab) 81 mg PO QAM [facility] Stop: 03/06/22 08:59 Last Admin: 02/07/22 08:36 Dose: 81 mg Documented by: Bisacodyl (Bisacodyl 10 Mg Supp) 10 mg [place] DAILY PRN PRN Reason: Constipation Stop: 03/05/22 14:38 Diphenhydramine HCl (Diphenhydramine Capsule 25 Mg Cap) 25 mg PO Q6H PRN PRN Reason: Allergic Rhinitis/Insomnia Stop: 03/05/22 14:38 Famotidine (Famotidine 20 Mg Tab) 20 mg PO Q12H PRN PRN Reason: Dyspepsia Stop: 03/05/22 14:38 Gabapentin (Gabapentin 300 Mg Cap) 300 mg PO TID [facility] Stop: 03/05/22 14:59 Last Admin: 02/07/22 08:37 Dose: 300 mg Documented by: Hydromorphone HCl (Hydromorphone Inj 0.5 Mg/0.5 Ml Syr) 0.5 mg IV Q3H PRN PRN Reason: MODERATE Pain (Scale 4,5,6) & Pre PT Stop: 02/17/22 14:38 Hydromorphone HCl (Hydromorphone Inj 1 Mg/Ml Syringe) 1 mg IV Q3H PRN PRN Reason: SEVERE Pain (Scale 7,8,9,10) Stop: 02/17/22 14:38 Last Admin: 02/05/22 09:25 Dose: 1 mg Documented by: Hydroxyzine HCl (Hydroxyzine Hcl 25 Mg Tab) 25 mg PO Q8H PRN PRN Reason: Anxiety Stop: 03/05/22 14:38 Promethazine HCl 12.5 mg/ (Sodium Chloride) 50.5 mls @ 202 mls/hr IV Q6H PRN PRN Reason: Nausea &/or Vomiting Stop: 03/05/22 14:38 Influenza Virus Vaccine Quadrival (Do Not Administer Flu Vaccine) 1 ea N/A PRN PRN PRN Reason: Notification Stop: 03/05/22 14:38 Lorazepam (Lorazepam 0.5 Mg Tab) 0.5 mg PO Q8H PRN PRN Reason: Sedation/Anxiety Stop: 03/05/22 14:38 Lorazepam (Lorazepam 2 Mg/1 Ml Vial) 0.5 mg IV Q8H PRN PRN Reason: Sedation/Anxiety Stop: 03/05/22 14:38 Magnesium Hydroxide (Magnesium Hydroxide Susp 30 Ml Udc) 30 ml PO Q24H PRN PRN Reason: Constipation Stop: 03/05/22 14:38 Melatonin (Melatonin 3 Mg Tab) 6 mg PO [facility] Stop: 03/05/22 20:59 Last Admin: 02/06/22 20:41 Dose: 6 mg Documented by: Metoclopramide HCl (Metoclopramide Hcl Inj 5 Mg/Ml 2 Ml Vial) 10 mg IV Q6H PRN PRN Reason: Nausea &/or Vomiting Stop: 03/05/22 14:38 Multivitamins/Minerals (Calcium 600mg + Vit D 400 Iu Tab) 1 tab PO QAM [facility] Stop: 03/06/22 08:59 Last Admin: 02/07/22 08:37 Dose: 1 tab Documented by: Multivitamins/Minerals (Cerovite Adv Formula Tab) 1 tab PO QAM [facility] Stop: 03/06/22 08:59 Last Admin: 02/07/22 08:37 Dose: 1 tab Documented by: Naloxone HCl (Naloxone Hcl 0.4 Mg/1 Ml Vial/Carp) 0.1 mg IV Q5M PRN PRN Reason: Oversedation/Resp depression Stop: 03/05/22 14:38 Ondansetron HCl (Ondansetron Inj 2 Mg/Ml 2 Ml Vial) 4 mg IV Q6H PRN PRN Reason: Nausea &/or Vomiting Stop: 03/05/22 14:38 Last Admin: 02/03/22 18:19 Dose: 4 mg Documented by: Ondansetron HCl (Ondansetron 4 Mg Od Tab) 4 mg PO Q6H PRN PRN Reason: Nausea Stop: 03/05/22 14:38 Oxycodone HCl (Oxycodone Hcl Ir 5 Mg Tab (Immediate Release)) 5 - 10 mg PO Q4H PRN PRN Reason: Pain & Pre PT Stop: 02/17/22 14:38 Last Admin: 02/07/22 08:19 Dose: 10 mg Documented by: Pneumococcal Polyvalent Vaccine (Do Not Administer Pneumococcal Vaccine) 1 ea N/A PRN PRN PRN Reason: Notification Stop: 03/05/22 14:38 Senna/Docusate Sodium (Docusate Sodium/Senna 50/8.6mg Tab) 2 tab PO [facility] Stop: 03/05/22 20:59 Last Admin: 02/06/22 20:42 Dose: Not Given Documented by: Simvastatin (Simvastatin 20 Mg Tab) 20 mg PO [facility] Stop: 03/05/22 20:59 Last Admin: 02/06/22 20:41 Dose: 20 mg Documented by: Sodium Biphosphate/Sodium Phosphate (Sod Phosphate/Sod Biphosphate Enema 132 Ml Btl) 132 ml [place] ONE PRN PRN Reason: Constipation Stop: 03/05/22 14:38 Tramadol HCl (Tramadol Hcl 50 Mg Tablet) 50 - 100 mg PO Q4H PRN PRN Reason: Moderate-Severe pain & Pre PT Stop: 03/05/22 14:38 Last Admin: 02/04/22 14:07 Dose: 100 mg Documented by: Vitamin B Complex (Vitamin B Complex Tab) [facility] Stop: 03/06/22 08:59 Last Admin: 02/07/22 08:37 Dose: 1 tab Documented by: Vitamin D (Cholecalciferol 1,000 Units 25 Mcg Tab) 2,000 units PO [facility] Stop: 03/06/22 08:59 Last Admin: 02/07/22 08:37 Dose: 2,000 units Documented by:
--- NOTE | 2022-02-07 14:22 | Discharge Summary ---
Date of Service February 07, 2022 Admission HPI Per Admitting Provider This is a 76-year-old female presents with worsening back and bilateral leg pain after failing course of nonoperative care is here for surgical invention. Principal Diagnosis Lumbar spinal stenosis with neurogenic claudication Discharge Data Allergies Allergy/AdvReac Type Severity Reaction Status Date / Time No Known Allergies Allergy Verified 02/03/22 08:35 Consultations 02/03/22 14:39 Consult Hospitalist Routine Procedures Performed Operation Date: 01/11/22 10:05 <No data on this case meets the specified criteria> Operation Date: 02/03/22 10:05 Actual Procedures p L2-L4 Decompression and Fusion, L4-L5 Re-instrumentation, Spinal Cord Monitoring(Not Applicable) - Chidi Domingo DO s L4-L5 Hardware Removal,(Not Applicable) - Chidi Domingo DO Ordered Studies 02/03/22 [place] lumbar spine 2-3V Routine Hospital Course (1) Lumbar stenosis with neurogenic claudication: Patient with lumbar decompression fusion tolerated so was taken to orthopedic floor postoperative. Postop day 1 she was up and ambulating progressed to play #2 and 3. Leg pain improved. Strength improving. SAMANTHA drain decreasing appropriately. Subsequent discharge home. Discharge orders instructions from the chart for further review. Total Time Total Time Spent Total Time Spent (In Minutes): 20 minutes Discharge Plan Discharge Items Patient Disposition: Home - Home Health Services Reason For Visit: Spinal Stenosis of Lumbar Region with Radiculopath Discharge Diagnosis: Lumbar spinal stenosis with neurogenic claudication Activity: As commented below Non-emergency contact: Primary Care Provider Call non-emergency contact if: you have any medication questions Follow-up/Referrals: Fabricio Slater MD [Primary Care Provider] - 02/14/22 11:00 am Diet: Regular Addtl Attending Provider Instructions: ACTIVITY RECOMMENDATIONS: SELF CARE INSTRUCTIONS AFTER THORACIC/LUMBAR FUSIONS 1. You may walk to your tolerance. It is good exercise for your legs and back. Expect some back and intermittent leg aches and pains. 2. You may perform "counter-top" level activities (make a sandwich, phil with a project, etc.). 3. No bending or lifting of more than 10 pounds or back twisting of any nature (roll like a log when turning in bed). 4. You may ride in a car for 20-30 minutes at a time. No driving until after your first visit with your doctor. 5. Frequent changes of position and restricting sitting to 30 minutes at a time will help limit the amount of back spasms and stiffness you may experience. 6. You may discontinue the use of ambulatory aids (cane, crutches, etc.) once your strength and confidence allow. 7. You may die sinker the shower and let water strike your incision when you arrive home at least once daily. Do not take a tub bath, sit in a hot tub or go into a swimming pool until after your first recheck in the office. SPECIAL CARE INSTRUCTIONS: VERY IMPORTANT TO READ AND REVIEW A. Your surgical incision has been closed with a cosmetic suture under the skin that will dissolve in about 6 weeks. In 14 days, you can use a pair of clean scissors and cut the suture that is left outside of the skin at the ends of your incision. 1. The small skin tapes can be removed 7 days after surgery if they have not fallen off by that point. 2. You may keep the wound open to air as much as possible to promote healing after post-op day number 5 unless told otherwise by your doctor. 3. If you think the wound looks like it is becoming infected (redness or worsening drainage) and/or you are experiencing fever, chill or worsening back pain and muscle spasms, contact the office so that we may evaluate you as soon as possible. B. Complications are uncommon, but please contact us if you have any signs or symptoms of: 1. wound infection (fever higher than 102.5 degrees F, redness, separation of wound, drainage, or increasing pain from the incision) 2. blood clots in legs (pain, swelling, redness and warmth in legs) 3. urinary tract infection (fever higher than 102.5 degrees F, burning upon urination or increased frequency of urination) 4. nerve problems (inability to walk on your toes or heels, numbness, loss of bowel or bladder control) 5. any other symptoms that concern you C. Please call the office at if you have any concerns or questions about your operation or recovery. D. No smoking! Smoking drastically decreases the chance of a solid fusion. E. Do not take any anti-inflammatory medications (Indocin, Advil, Motrin, Aspirin, Naprosyn, etc.) as these may inhibit the chance of a solid fusion. Tylenol is okay to take for pain. MANAGING PAIN AFTER SPINAL SURGERY 1. Narcotic medication is intended for short-term use and will be provided for surgical pain. Surgical pain usually lasts for a period of 4-6 weeks. Narcotic medication includes Percocet, Vicodin, Darvocet, Tylenol #3 or Lortab. 2. Longer-term pain is more appropriately treated with non-narcotic medication such as Tylenol ES. 3. Muscle spasm is not appropriately treated with narcotics. Muscle relaxers such as Soma, Flexeril or Skelaxin can be used along with Tylenol ES. 4. Remember that we all live with some "aches and pains". This is not unusual or uncommon after an injury or as we get older. a. Back pain is expected and may include muscle spasms for 4 to 6 weeks after surgery. The pain should gradually improve. If the pain worsens for no apparent reason, please contact the office. b. Intermittent leg pain may also be experienced and should not be concerned about unless it worsens for no apparent reason. If so, please contact the office. 5. We will provide appropriate medication within the normal guidelines of their prescribed use. We will also be very cautious and aware of potential abuse and extended duration of patients' medication needs. a. Pain medications are for your comfort and to assist with sleep and rest so that the tissue can heal. They are not provided in order to return to normal activity and should not be used through the day. To do so or worsening pain at night can result from ongoing tissue damage and development of tolerance to the prescribed medicine. 6. Please allow 2-3 days to process refills. Prescriptions will not be mailed but must be picked up at the office. FOLLOW UP VISIT: Keep your scheduled follow-up appointment. Any questions, please call the office at . Pending Studies at Discharge: No Stand-Alone Forms: [facility], Opioid Pain Management, Smoking Cessation Medications and DC Order Prescriptions: New tramadol 50 mg tablet 50 mg PO Q6H PRN (Reason: pain, moderate) Qty: 30 RF: 0 oxycodone 5 mg tablet 5 mg PO Q6H PRN (Reason: pain, severe) Qty: 30 RF: 0 Continued loperamide [Imodium A-D] 2 mg Capsule 2 mg PO QAM RF: 0 aspirin 81 mg Tablet,Delayed Release (Dr/Ec) 81 mg PO QAM RF: 0 simvastatin 20 mg Tablet 20 mg PO HS RF: 0 gabapentin 300 mg Capsule 300 mg PO TID RF: 0 vitamin B complex [Ultra B-100 Complex] Tablet 1 tab PO QAM RF: 0 Calcium 600 + D(3) 600 mg calcium- 200 unit Capsule 1 cap PO QAM RF: 0 cholecalciferol (vitamin D3) [Vitamin D3] 2,000 unit Capsule 2,000 unit PO QAM RF: 0 Centrum Silver 400-250 mcg Tablet,Chewable 1 tab PO QAM RF: 0 melatonin 3 mg Tablet 6 mg PO HS RF: 0 ascorbic acid (vitamin C) [Vitamin C] 500 mg Tablet 500 mg PO QAM RF: 0 tramadol 50 mg Tablet 50 mg PO TID PRN (Reason: Pain) RF: 0 krill oil 500 mg Capsule 500 mg PO QAM RF: 0 Discharge Orders: Discharge Order (Routine); Ordered 02/07/22 Ordered By: Chidi Pineda/Other Patient Handouts: DVT Post Op Prevention, After Back Surgery: Going Home, Back Surg Daily Life Tips Admission Data Admit Date/Time: 02/03/22 13:06 Attending Provider: Chidi Domingo Admit Provider: Chidi Domingo Primary Care Provider: Fabricio Slater Other Providers: Jesusita Murray ; Raúl Renee ; Juliann Loco Other Interventions: Discharge Summary Assessment (RN) Last Done: 02/07/22 12:30
== END 2022-02-07 13:51 | disposition home health service (06) | DRG 460 ==
LOC: ASU 08:12 → 3W 13:06